=== PATIENT | female | born 1985 | race African-American/Black ===

== ENCOUNTER 2017-07-02 07:59 | Emergency (ER) | payer MEDICARE, MEDICAID | END 2017-07-02 08:46 | disposition home or self-care (01) | LOC: ERS 07:59 | DX: M25.561 Pain in right knee (principal); K02.9 Dental caries, unspecified; F31.9 Bipolar disorder, unspecified; F20.9 Schizophrenia, unspecified; F17.210 Nicotine dependence, cigarettes, uncomplicated; Z79.899 Other long term (current) drug therapy | CPT/HCPCS: 99283 ==

== ENCOUNTER 2017-07-14 20:38 | Emergency (ER) | payer MEDICARE, MEDICAID ==
[2017-07-14 21:07] LABS: #Basophils 0.1 thou/uL (0.0-0.2); #Eosinphils 0.1 thou/uL (0.0-0.7); #Lymphocytes 3.4 thou/uL (1.20-3.40); #Monocytes 0.7 thou/uL (0.11-0.59); #Neutrophils 4.5 thou/uL (1.40-6.50); %Basophils 1.1 % (0.0-1.0); %Eosinophils 1.3 % (0.0-10.0); %Lymphocytes 38.9 % (21.0-51.0); %Monocytes 7.6 % (0.0-10.0); Hematocrit 34.5 % (36.0-47.0); Mean Platelet Volume 6.9 fL (7.4-10.4); White Blood Cell (WBC) Count 8.8 thou/uL (4.8-10.8)
[2017-07-14 21:30] LABS: ALT (SGPT) 11 U/L (8-55); AST (SGOT) 9 U/L (5-34); Alkaline Phosphatase 51 U/L (40-150); Anion Gap 10 mmol/L (10-20); BUN (Urea Nitrogen) 16 mg/dL (7.0-18.7); Bilirubin, Total 0.3 mg/dL (0.2-1.2); CK (CPK) 109 U/L (29-168); Calc. Creatinine Clearance 0 mL/min (70-130); Calcium 8.9 mg/dL (7.8-10.44); Carbon Dioxide 25 mmol/L (22-29); Chloride 108 mmol/L (98-107); Estimated GFR-MDRD 74; Globulin 3.4 g/dL (2.4-3.5)
[2017-07-14 21:52] LABS: Troponin I Less than 0.010 ng/mL (< 0.028)
[2017-07-14 21:53] LABS: Acetaminophen Less than 6.0 mcg/mL (10.0-30.0); Salicylate Less than 8.0 mg/dL (15.0-30.0)
--- NOTE | 2017-07-14 22:19 | RAD ---
AP CHEST: History: Seizures. IMPRESSION: No acute cardiopulmonary abnormality. The examination does not appear appreciably changed when thelma red to 02-10-15. POS: [facility]
--- NOTE | 2017-07-14 22:29 | CT ---
CT BRAIN WITHOUT CONTRAST: History: History of seizures. Comparison: 02-10-15 FINDINGS: No acute infarct, hemorrhage, or hydrocephalus is present. The septum pellucidum and third ventricle are midline. Mastoid air cells and paranasal sinuses are clear. IMPRESSION: No acute intracranial abnormality. The examination [facility] POS: [facility]
[2017-07-15 00:27] LABS: Bilirubin Negative (Negative); Blood, Urine Large (Negative); Glucose, Urine (Dipstick) Negative (Negative); Ketone, Urine Negative (Negative); Nitrite Negative (Negative); Protein, Urine (Dipstick) Negative (Neg-Trace)
[2017-07-15 00:29] LABS: Bacteria/HPF None Seen HPF (None Seen); Hyaline Casts/LPF 0-3 HYALINE CAST LPF (0-3 Hyaline); RBC/HPF GREATER THAN 50-TNTC HPF (0-3); Squamous Epithelial 0-3 HPF (0-3); WBC/HPF 21-50 HPF (0-3)
[2017-07-15 00:37] LABS: Amphetamine Not Detected (NotDetected); Methadone Not Detected (NotDetected); Methamphetamine Not Detected (NotDetected)
== END 2017-07-15 03:13 | disposition home or self-care (01) ==
LOC: ERS 20:38
DX: R56.9 Unspecified convulsions (principal); N39.0 Urinary tract infection, site not specified; F31.9 Bipolar disorder, unspecified; F17.210 Nicotine dependence, cigarettes, uncomplicated; Z79.899 Other long term (current) drug therapy
CPT/HCPCS: 36415; 70450; 71010; 80053; 80306; 80307; 81003; 81015; 81025; 82550; 82553; 84484; 84703; 85025; 93005; 96360

== ENCOUNTER 2018-01-11 21:45 | Emergency (ER) | payer MEDICARE, MEDICAID | END 2018-01-11 23:39 | disposition home or self-care (01) | LOC: ERS 21:45 | DX: M10.9 Gout, unspecified (principal); F20.9 Schizophrenia, unspecified; F17.210 Nicotine dependence, cigarettes, uncomplicated; F31.9 Bipolar disorder, unspecified; R56.9 Unspecified convulsions; Z79.899 Other long term (current) drug therapy | CPT/HCPCS: 36415; 84550; 99283 ==

== ENCOUNTER 2018-03-06 08:45 | Inpatient (IN) | payer MEDICARE, MEDICAID ==
[2018-03-06 09:28] LABS: #Basophils 0.1 thou/uL (0.0-0.2); #Eosinphils 0.3 thou/uL (0.0-0.7); #Lymphocytes 2.8 thou/uL (1.20-3.40); #Monocytes 0.4 thou/uL (0.11-0.59); #Neutrophils 3.6 thou/uL (1.40-6.50); %Basophils 1.2 % (0.0-1.0); %Eosinophils 3.9 % (0.0-10.0); %Lymphocytes 39.6 % (21.0-51.0); %Monocytes 4.9 % (0.0-10.0); %Neutrophils 50.4 % (42.0-75.0); Hemoglobin 11.5 g/dL (12.0-16.0); Mean Corpuscular HGB CONC 32.5 g/dL (32.0-36.0); Mean Corpuscular Hemoglobin 30.4 pg (27.0-31.0); Mean Corpuscular Volume 93.6 fL (78.0-98.0); Mean Platelet Volume 6.9 fL (7.4-10.4); Platelet Count 257 thou/uL (130-400); RBC Distribution Width 13.4 % (11.5-14.5); Red Blood Cell (RBC) Count 3.77 mill/uL (4.20-5.40); White Blood Cell (WBC) Count 7.1 thou/uL (4.8-10.8)
[2018-03-06] MEDS ORDERED: predniSONE 20 MG TAB ONE (09:29)
[2018-03-06 09:40] LABS: BHCG - Serum Negative (NEGATIVE); Pregs Control Background? CLEAR/WHITE (CLR/WHITE); Pregs Control Bar Appear? YES (CONTROL BAR)
[2018-03-06 09:50] LABS: ALT (SGPT) 75 U/L (8-55); AST (SGOT) 37 U/L (5-34); Alkaline Phosphatase 71 U/L (40-150); Anion Gap 13 mmol/L (10-20); BUN (Urea Nitrogen) 12 mg/dL (7.0-18.7); Bilirubin, Total 0.9 mg/dL (0.2-1.2); Calc. Creatinine Clearance 0 mL/min (70-130); Calcium 9.4 mg/dL (7.8-10.44); Carbon Dioxide 21 mmol/L (22-29); Chloride 110 mmol/L (98-107); Estimated GFR-MDRD 90; Glucose 99 mg/dL (70-105); Sodium 140 mmol/L (136-145)
[2018-03-06 09:54] LABS: CKMB 0.8 ng/mL (0-6.6)
--- NOTE | 2018-03-06 10:07 | RAD ---
TWO VIEWS CHEST: Comparison: 07-14-17 History: Asthma flair up with dyspnea on exertion and cough for three days. FINDINGS: Two views of the chest shows an enlarged cardiomediastinal silhouette. Decreased interstitial marking s are present. There is no evidence of pleural effusion. There are opacities in the retrocardiac gaye on as seen on the lateral radiograph which may represent atelectasis or infiltrates in the lower lobe s. IMPRESSION: Bilateral lower lobe atelectasis versus infiltrate. POS: [facility]
[2018-03-06] MEDS ORDERED: ISOVUE-370 76%-LOCM 1 ML ONE (11:58)
--- NOTE | 2018-03-06 12:20 | CT ---
CT OF THE THORAX UTILIZING IV CONTRAST AND 3D REFORMATTED IMAGING: INDICATION: A 32-year-old female with wheezing and coughing. COMPARISON: Prior exam dated 07/30/11 and 08/03/10. FINDINGS: No definite central or segmental pulmonary embolus is evident. There is an enlarging soft tissue density within the superior and anterior mediastinum measuring 4 x 6.1 cm in its greatest transverse dimension. This was present on a comparison examination dated 07/16 01/23 but has intervally enlarged where it previously measured 2.8 x 3.6 cm. This measured approximat yolis 1 x 2.4 cm on the comparison of 08/03/10. There is now interval development of enlraged lymph no gee within the superior mediastinum, the largest measuring up to 8 mm. There is enlarged right supra hilar lymph node now measuring 1.3 cm. There is an enlarged subcarinal lymph node measuring 2.1 cm. There is an enlarged lymph node within the left hilar region measuring 1.7 cm. No definite pathologically enlarged lymph nodes seen within the upper abdomen. The spleen is normal in size measuring 8.6 cm. The gallbladder is surgically absent. No confluent airspace opacity or pl eural effusion is evident. There is some mild volume loss within the left lower lobe. IMPRESSION: 1. No central or segmental pulmonary embolus demonstrated. 2. Enlarging anterior mediastinal mass with mediastinal and hilar lymphadenopathy. Differential con siderations include entities such as Hodgkin's lymphoma or non-Hodgkin's lymphoma. A thymic lesion s uch as thymoma, thymic hyperplasia or thymic carcinoma cannot be entirely excluded. Entities such as a malignant germ cell tumor is felt to be less likely. A pulmonary consultation may be helpful for additional evaluation. CODE T POS: [facility]
[2018-03-06 14:04] LABS: Troponin I 0.108 ng/mL (< 0.028)
[2018-03-06] MEDS ORDERED: Guaifenesin DM 100-10/5 ML UDCUP PO PRN (14:07)
[2018-03-06] MEDS ORDERED: Acetaminophen 325 MG TAB PO PRN (14:07)
--- NOTE | 2018-03-06 15:02 | HP ---
REASON FOR ADMISSION: Asthma exacerbation, demand ischemia, CHF exacerbation, enlarging mediastinal mass, hemoptysis. HISTORY OF PRESENT ILLNESS: The patient gives history of having shortness of breath from last 3 days. She has also developed exertional chest tightness from day before. She has been using her albuterol inhaler multiple times. She has known history of asthma. This morning, the patient started to wheeze and also had increasing expectoration of sputum, which is yellowish. She also had one episode of small amount of blood in her sputum. All of this concerned as her symptoms were getting worse from last 3 days, the patient came to emergency room. Currently, she has no complaints of chest pain or palpitation. No prior history of cardiac issues or stress test done. No history of heart failure in the past. Has not had any measured temperature as such, but has felt feverish. PAST MEDICAL/SURGICAL HISTORY: History of asthma, seizure disorder from 13 years of age, but she has been seizure free from last 1 year now. Has history of schizoaffective disorder, depression, x2, and cholecystectomy. CURRENT MEDICATIONS: The patient takes albuterol inhaler q.6 hourly p.r.n.,; Keppra 1000 mg p.o. twice daily; Seroquel, unknown dose daily; Lexapro, unknown dose daily. She is also on another antipsychotic pill which she cannot remember at present. The patient goes to [facility] on [address] and will try to obtain the same. ALLERGIES: She is allergic to IBUPROFEN, which causes a rash. PERSONAL HISTORY: Smokes one pack a day, abuses marijuana, does not abuse alcohol or other drugs. She lives with her mom. FAMILY HISTORY: Mother has a history of multiple myeloma. Father of lung cancer at the age of 74 years. CODE STATUS: FULL. Power of civil attorney is her cousin Ms. Mary Anne mSall, the number to reach her is [phone]. REVIEW OF SYSTEMS: The following complete review of systems was negative, unless otherwise mentioned in the HPI or below: Constitutional: Weight loss or gain, ability to conduct usual activities. Skin: Rash, itching. Eyes: Double vision, pain. ENT/Mouth: Nose bleeding, neck stiffness, pain, tenderness. Cardiovascular: Palpitations, dyspnea on exertion, orthopnea. Respiratory: Shortness of breath, wheezing, cough, hemoptysis, fever or night sweats. Gastrointestinal: Poor appetite, abdominal pain, heartburn, nausea, vomiting, constipation, or diarrhea. Genitourinary: Urgency, frequency, dysuria, nocturia. Musculoskeletal: Pain, swelling. Neurologic/Psychiatric: Anxiety, depression. Allergy/Immunologic: Skin rash, bleeding tendency. PHYSICAL EXAMINATION: GENERAL: The patient is a 32-year-old female who is currently not in any acute distress. VITAL SIGNS: Blood pressure 138/98, pulse 100 per minute, respiratory rate 22 per minute, temperature 98.5 degrees Fahrenheit, saturating 99% on room air. NECK: Supple, no elevated JVD. HEENT: Eyes: Extraocular muscles intact. Pupils reacting to light. Oral cavity mucous membranes are moist. There is mild congestion in the posterior pharynx. No exudates seen. CARDIOVASCULAR: S1, S2 heard. Regular rhythm. RESPIRATORY: Air entry 1+ bilaterally. There are scattered wheezes plus bilaterally. ABDOMEN: Soft, bowel sounds heard. No tenderness, rigidity or guarding. EXTREMITIES: No peripheral edema or calf tenderness. VASCULAR SYSTEM: Peripheral pulses 1+ bilateral. No ischemic ulcerations or gangrene. CENTRAL NERVOUS SYSTEM: No gross focal deficits seen. The patient is alert, awake, oriented well. PSYCHIATRIC: The patient's mood is euthymic. No hallucinations or delusions. LABORATORY AND X-RAY FINDINGS: EKG done shows normal sinus rhythm at 89 beats per minute. There are signs of LVH seen. White count of 7, H&H 11 and 35, platelet count 257, MCV is 93 with 50% neutrophils. D-dimer was 3.74. Serum bicarbonate 21, BUN 12, creatinine 0.8, glucose 99, AST 37, ALT 75. Troponin I 0.13, CK-MB 0.8. BNP is 888, albumin is 4.0. Serum test is negative. CT angio chest done showed enlarging anterior mediastinal mass when compared to prior CAT scans done in 2009 and 2011, currently measures 4 x 6.1 cm. No PE was seen. CLINICAL IMPRESSION AND PLAN: The patient will be admitted to telemetry for acute asthma exacerbation, congestive heart failure exacerbation, demand ischemia, hemoptysis, enlarging mediastinal mass. The patient will be gently diuresed with Lasix 40 mg IV q.12 hourly. We will obtain echo with 2D Doppler for LV function. As patient is allergic to NSAIDs, she will be placed on Plavix. She will be empirically placed on ceftriaxone and Zithromax, along with steroids and DuoNebs. We will place her on a small dose of Coreg and lisinopril. We will try to obtain her home medications for her schizoaffective disorder from her [facility] and continue the same here. We will continue to closely monitor her on telemetry. CHRISTINE
[2018-03-06] MEDS: Nicotine 21 MG PATCH TD SCH (16:16)
[2018-03-06] MEDS: Azithromycin 500 MG in Sodium Chloride 0.9% 250 ML 250 ML IVPB SCH (16:16)
[2018-03-06 16:29] LABS: Troponin I 0.092 ng/mL (< 0.028)
[2018-03-06] MEDS: cefTRIAXone\\ROCEPHIN 1 GM in Sodium Chloride 0.9% 100 ML IVPB SCH (17:53)
[2018-03-06] MEDS: Nitroglycerin 2% Ointment 1 INCH/1 GM Packet TOP SCH (20:43)
[2018-03-06] MEDS: Docusate 100 MG CAP PO SCH (20:46)
[2018-03-06] MEDS: levETIRAcetam 500 MG TAB PO SCH (20:46)
[2018-03-06] MEDS: Famotidine 20 MG TAB PO SCH (20:46)
[2018-03-06] MEDS: Carvedilol 3.125 MG TAB PO SCH (20:46)
--- NOTE | 2018-03-07 03:56 | CON ---
DATE OF CONSULTATION: 03/06/2018 REQUESTING PHYSICIAN: Dr. Yosef Hinds, the Hospitalist Service. CHIEF COMPLAINT: Wheezing and shortness of breath. HISTORY OF PRESENT ILLNESS: The patient is a 32-year-old woman with a history of asthma and seizure disorder who smokes about a pack of cigarettes a day as well as marijuana, she had a flareup of her a sthma and that was sufficiently bad that she presented to the hospital. She was started on antibioti cs and steroids and her wheezing has cleared. A CT scan done to rule out pulmonary embolism, reporte d an enlarging anterior mediastinal mass and mediastinal adenopathy including hilar adenopathy, but t he comparison film was from several years ago. The patient does report night sweats, but denies any fevers, any unintended weight loss and malaise in the masses that she has noted popping up anywhere. PAST MEDICAL HISTORY: Significant for asthma and seizure disorder. She has a history of schizoaffec tive disorder and depression. She has undergone a cholecystectomy and two C-sections. HOME MEDICATIONS: She normally takes p.r.n. albuterol inhaler, Keppra 1000 mg twice a day, Seroquel and Lexapro both of which are unknown dose and another antipsychotic medication, the name of which gregorio jordan cannot remember. The nursing intake sheet lists her home medicines as Keppra 1000 mg b.i.d., p.r.n . albuterol, Lexapro 20 mg b.i.d., and Seroquel 100 mg at bedtime. ALLERGIES: She reports IBUPROFEN, causes rash. FAMILY HISTORY: Her father of lung cancer. Her mother has multiple myeloma. The patient says that she does not snore, sleep with a CPAP mask. PHYSICAL EXAMINATION: GENERAL: She is comfortable appearing. VITAL SIGNS: Heart rate is in the 90s, blood pressure 131/95, room air O2 sats are in the mid to hig h 90s, respirations are in the mid upper teens. Her height is 5 feet 10 inches, weight is 309 pounds . NECK: No cervical or supraclavicular lymphadenopathy. CHEST: Clear to auscultation. CARDIOVASCULAR: She has regular rate and rhythm without any obvious murmur or gallop. I am able to appreciate a split of S2, but it seems to be a variable split. ABDOMEN: Obese, soft, and nontender. Her CT scan is most notable for cardiomegaly or pulmonary isael ry RV outflow tract, essentially about the chest wall anteriorly. It is very difficult to appreciate any distinct tissue planes in the thymic fat pad to suggest a distinct mass. I am not able to view the films from 2011 and 2009 that were used as reference. She has an AP window lymph node that is le ss than a centimeter and she has got some peribronchial hilar lymph nodes that are a little bit over a centimeter in size. IMPRESSION AND RECOMMENDATIONS: I am not particularly impressed that this is a distinct mass. Certa inly, the patient's body habitus makes getting good detail on CAT scan challenge, but roughly doublin g in size of her mass over a period of 7-8 years, could just simply be accumulation of fat, [facility], not able to find any weights back in about 2-3 years when she was roughly the same leonila ght a little over 300 pounds, but certainly even if this is some neoplastic process, it is growing sl owly enough that I think that rather than diving into mediastinoscopy, percutaneous biopsy, or sterno álvaro that we can just simply follow this for a bit. I think a far more pressing issue is to sort out why she has such impressive cardiomegaly.
[2018-03-07 05:45] LABS: #Monocytes 0.1 thou/uL (0.11-0.59); #Neutrophils 5.7 thou/uL (1.40-6.50); %Eosinophils 0.1 % (0.0-10.0); %Lymphocytes 14.1 % (21.0-51.0); %Neutrophils 83.7 % (42.0-75.0); Hemoglobin 11.4 g/dL (12.0-16.0); Mean Corpuscular HGB CONC 32.8 g/dL (32.0-36.0); Mean Corpuscular Hemoglobin 30.2 pg (27.0-31.0); Mean Corpuscular Volume 92.3 fL (78.0-98.0); Mean Platelet Volume 7.2 fL (7.4-10.4); Platelet Count 257 thou/uL (130-400); RBC Distribution Width 13.2 % (11.5-14.5); Red Blood Cell (RBC) Count 3.77 mill/uL (4.20-5.40); White Blood Cell (WBC) Count 6.9 thou/uL (4.8-10.8)
[2018-03-07] MEDS: Furosemide 40 MG/4 ML VIAL SLOW IVP SCH ×2 (06:08→15:43)
[2018-03-07 06:11] LABS: Anion Gap 13 mmol/L (10-20); BUN (Urea Nitrogen) 11 mg/dL (7.0-18.7); Calc. Creatinine Clearance 235 mL/min (70-130); Calcium 9.3 mg/dL (7.8-10.44); Carbon Dioxide 21 mmol/L (22-29); Cardiac Risk 3.3 (Less than 4.5); Chloride 107 mmol/L (98-107); Cholesterol 156 mg/dl (< 200 Desired); Estimated GFR-MDRD Greater than 90; Glucose 126 mg/dL (70-105); HDL Cholesterol 47 mg/dL (>60 Neg Risk); LDL Cholesterol, Calculated 97 mg/dL; Potassium 4.5 mmol/L (3.5-5.1); Sodium 136 mmol/L (136-145); Triglycerides 62 mg/dL (Less than 150); Uric Acid 6.4 mg/dL (2.6-6.0)
[2018-03-07] MEDS: Nitroglycerin 2% Ointment 1 INCH/1 GM Packet TOP SCH ×3 (06:51→20:35)
[2018-03-07] MEDS: levETIRAcetam 500 MG TAB PO SCH ×2 (09:51→20:35)
[2018-03-07] MEDS: Famotidine 20 MG TAB PO SCH ×2 (09:52→20:35)
[2018-03-07] MEDS: Sodium Chloride 0.9% 10 ML ONE ×3 (09:54→17:07)
--- NOTE | 2018-03-07 10:52 | CON ---
DATE OF CONSULTATION: 03/06/2018 REASON FOR CONSULTATION: Elevated troponin and elevated BNP. HISTORY OF PRESENT ILLNESS: Ms. Sharma is a pleasant 32-year-old woman with past history of tobacco abuse, recently presented with increased shortness of breath. She states this has occurred last 2-3 weeks. She has had PND in addition have done, lower extremity edema. She also had increased weight. No chest pain or pressure noted. The only cardiovascular risk factor is tobacco abuse. PAST MEDICAL AND SURGICAL HISTORY: As above including seizure disorder, depression, x2, ch olecystectomy, schizoaffective disorder. MEDICATIONS: Lexapro, Keppra, Seroquel. ALLERGIES: IBUPROFEN. SOCIAL HISTORY: Positive tobacco, positive marijuana use. No alcohol use. FAMILY HISTORY: Negative for CAD. REVIEW OF SYSTEMS: Ten-point review of systems reviewed and as above, otherwise negative. PHYSICAL EXAMINATION: GENERAL: Patient is a pleasant female who is in no acute distress. The patient appears her stated a ge. She is morbidly obese, weighing 305 pounds. VITAL SIGNS: Blood pressure 121/83, pulse 88, temperature 98.8. NEUROLOGIC: The patient is alert and oriented times 3 with no focal neurologic deficits. HEENT: Sclerae without icterus. Mouth has moist mucous membranes with normal pallor. NECK: No JVD. Carotid upstroke brisk. No bruits bilaterally. LUNGS: Clear to auscultation with unlabored respirations. BACK: No scoliosis or kyphosis. CARDIAC: Regular rate and rhythm with normal S1 and S2. No S3 or S4 noted. No significant rubs, mu rmurs, thrills, or gallops noted throughout the precordium. PMI is not displaced. There is no lauren ternal heave. ABDOMEN: Soft, nontender, nondistended. No peritoneal signs present. No hepatosplenomegaly. No ab normal striae. EXTREMITIES: 2+ femoral and 2+ dorsalis pedis pulses. No cyanosis, clubbing, or edema. SKIN: No gross abnormalities. PERTINENT LABORATORY DATA: Hemoglobin 11.4, hematocrit 34.8, BUN 11, creatinine 0.7. BNP of 888, tr oponin 0.108. IMPRESSION: 1. Elevated BNP. 2. Increased shortness of breath. 3. Tobacco abuse. RECOMMENDATIONS: Ms. Sharma's symptoms certainly suggest cardiomyopathy given her symptoms in additi on to elevated BNP. Her troponin is mildly elevated, which is also concerned. At this point, I angela mmend aggressive medical therapy. We would recommend echo with Doppler. If her LVEF is diminished, we would therefore recommend coronary angiography. If it is felt to be within normal limits, we will then recommend a noninvasive stress study. She is currently on Coreg and we continue. We would als o recommend continuing IV Lasix. I do not feel this is consistent with infection.
[2018-03-07 10:55] VITALS: BMI 43.8
[2018-03-07] MEDS ORDERED: Sodium Chloride 0.9% 10 ML ONE (11:27)
[2018-03-07] MEDS: Clopidogrel Bisulfate 75 MG TAB PO SCH (11:31)
[2018-03-07] MEDS: Lisinopril 2.5 MG TAB PO SCH (11:32)
[2018-03-07] MEDS: Escitalopram Oxalate 10 mg Tablet PO SCH (11:32)
[2018-03-07] MEDS: Docusate 100 MG CAP PO SCH ×2 (11:33→20:39)
[2018-03-07] MEDS: Carvedilol 3.125 MG TAB PO SCH ×2 (11:33→20:35)
[2018-03-07] MEDS: Enoxaparin Sodium 40 MG/0.4 ML SYRINGE SC SCH (11:38)
--- NOTE | 2018-03-07 13:24 | PRG ---
DATE OF SERVICE: 03/07/2018 SUBJECTIVE: Ms. Sharma is doing well. She has less shortness of breath. She has diuresed. PHYSICAL EXAMINATION: VITAL SIGNS: Blood pressure 118/80, pulse 80, temperature 98.8. I's and O's -320. Weight unchanged . NEUROLOGIC: The patient is alert and oriented times 3 with no focal neurologic deficits. HEENT: Sclerae without icterus. Mouth has moist mucous membranes with normal pallor. NECK: No JVD. Carotid upstroke brisk. No bruits bilaterally. LUNGS: Clear to auscultation with unlabored respirations. BACK: No scoliosis or kyphosis. CARDIAC: Regular rate and rhythm with normal S1 and S2. No S3 or S4 noted. No significant rubs, murmurs, thrills, or gallops noted throughout the precordium. PMI is not displaced. There is no parasternal heave. ABDOMEN: Soft, nontender, nondistended. No peritoneal signs present. No hepatosplenomegaly. No abnormal striae. EXTREMITIES: 2+ femoral and 2+ dorsalis pedis pulses. No cyanosis, clubbing, or edema. SKIN: No gross abnormalities. PERTINENT LABS: Hemoglobin 11.4, creatinine 0.76. Echo Doppler shows LVEF 15%. Left ventricle appe ars dilated. Restrictive pattern present.` IMPRESSION: New onset cardiomyopathy of unknown etiology. RECOMMENDATIONS: Ms. Sharma does have a history of tobacco abuse. There is only risk factor. Given a mildly elevated troponin with cardiomyopathy and risk factor, we would recommend coronary angiogra phy post PCI. I discussed the procedure in full detail with Ms. Sharma. The risks include but are n ot limited. I discussed the procedure in full detail with the patient. The risks of the procedure w ere also discussed. The risks of the procedure include but are not limited to the following: , stroke, NM, need for emergency surgery, loss of limb, bleeding, and infection, as well as a reaction to the dye causing kidney failure and needing long-term dialysis. I also discussed the risks of PCI to include all of the above including coronary dissection and perforation in addition to acute stent thrombosis and restenosis. All questions about the procedure were answered. Given the above, the p atient agreed to proceed with coronary angiography and possible PCI. I also discussed drug-coated ve rsus nondrug-coated stent placement. Risks and benefits discussed. She states she can be compliant. There are no other contraindications, we will proceed with a drug-coated stent placement if needed. She has had a BTL in the past.
--- NOTE | 2018-03-07 13:54 | PDOC.PN ---
- Subjective Encounter Start Date: 03/07/18 Encounter Start Time: 11:35 -: old records requested/rev Pt seen and examined, chart reviewed in its entirety, this is my first visit with this patient Echo reviewed, EF 10-15%, diastolic dysfunction, cards to keep pt through weekend fro cath friday SOB much better, urinating well and responding tp diuresis All systems reviewed and neg for all except as stated above - Objective MAR Reviewed: Yes Vital Signs & Weight: Vital Signs (12 hours) Temp Pulse Pulse Pulse Resp BP BP 03/07/18 13:47 86 16 03/07/18 11:32 88 118/80 03/07/18 11:31 86 106 H 109/71 03/07/18 08:00 98.8 F 88 16 03/07/18 07:44 98.8 F 88 16 03/07/18 06:39 89 16 03/07/18 03:50 96.7 F L 89 22 H BP BP Pulse Ox Pulse Ox Pulse Ox 03/07/18 13:47 96 03/07/18 11:32 03/07/18 11:31 127/82 95 96 03/07/18 08:00 92 L 03/07/18 07:44 121/83 92 L 03/07/18 06:39 96 03/07/18 03:50 127/87 93 L Weight Admit Weight 309 lb Weight 305 lb 11.2 oz I&O: 03/06/18 03/07/18 03/08/18 06:59 06:59 06:59 Intake Total 780 Output Total 1100 Balance -320 Result Diagrams: 03/07/18 05:08 03/07/18 05:08 Radiology Reviewed by me: Yes EKG Reviewed by me: Yes Phys Exam - Physical Examination Constitutional: NAD HEENT: PERRLA, moist MMs, sclera anicteric, oral pharynx no lesions Neck: no nodes, no JVD, supple, full ROM Respiratory: no wheezing, no rales, no rhonchi, clear to auscultation bilateral Cardiovascular: RRR, no significant murmur, no rub Gastrointestinal: soft, non-tender, no distention, positive bowel sounds Musculoskeletal: pulses present, edema present Neurological: non-focal, normal sensation, moves all 4 limbs Lymphatic: no nodes Psychiatric: normal affect, A&O x 3 Skin: no rash, normal turgor, cap refill <2 seconds Dx/Plan (1) Acute systolic CHF (congestive heart failure), NYHA class 4 Code(s): I50.21 - ACUTE SYSTOLIC (CONGESTIVE) HEART FAILURE Status: Acute Comment: cath friday. diurese per cardiology (2) Asthma Code(s): J45.909 - UNSPECIFIED ASTHMA, UNCOMPLICATED Status: Acute Qualifiers: Asthma severity: unspecified severity Asthma persistence: intermittent Asthma complication type: unspecified Qualified Code(s): J45.20 - Mild intermittent asthma, uncomplicated (3) Bipolar 1 disorder Code(s): F31.9 - BIPOLAR DISORDER, UNSPECIFIED Status: Chronic (4) Grand mal seizure disorder Code(s): G40.409 - OTH GENERALIZED EPILEPSY, NOT INTRACTABLE, W/O STAT EPI Status: Chronic (5) Hx of suicide attempt Code(s): Z91.5 - PERSONAL HISTORY OF SELF-HARM Status: Chronic (6) Polysubstance (excluding opioids) dependence Code(s): F19.20 - OTHER PSYCHOACTIVE SUBSTANCE DEPENDENCE, UNCOMPLICATED Status: Chronic (7) Schizophrenia Code(s): F20.9 - SCHIZOPHRENIA, UNSPECIFIED Status: Chronic Qualifiers: Schizophrenia type: unspecified Qualified Code(s): F20.9 - Schizophrenia, unspecified - Plan cont current plan of care, out of bed/ambulate * .
[2018-03-07] MEDS: Nicotine 21 MG PATCH TD SCH (15:46)
[2018-03-07] MEDS: Azithromycin 500 MG in Sodium Chloride 0.9% 250 ML 250 ML IVPB SCH (15:46)
[2018-03-07] MEDS ORDERED: Nitroglycerin 0.4 MG TAB (25 Tab Bottle) ONE (17:03)
[2018-03-07] MEDS: Nitroglycerin 0.4 MG TAB (25 Tab Bottle) SL PRN ×2 (17:05→17:08)
[2018-03-07] MEDS: cefTRIAXone\\ROCEPHIN 1 GM in Sodium Chloride 0.9% 100 ML IVPB SCH (17:06)
[2018-03-07 18:09] LABS: CKMB 0.6 ng/mL (0-6.6)
[2018-03-07 20:23] LABS: CKMB 0.7 ng/mL (0-6.6); Troponin I 0.034 ng/mL (< 0.028)
[2018-03-08] MEDS: Nitroglycerin 2% Ointment 1 INCH/1 GM Packet TOP SCH ×3 (05:29→22:20)
[2018-03-08] MEDS: Furosemide 40 MG/4 ML VIAL SLOW IVP SCH ×2 (05:29→14:48)
[2018-03-08 05:38] LABS: #Lymphocytes 1.4 thou/uL (1.20-3.40); #Monocytes 0.4 thou/uL (0.11-0.59); #Neutrophils 10.7 thou/uL (1.40-6.50); %Eosinophils 0.1 % (0.0-10.0); %Lymphocytes 11.3 % (21.0-51.0); %Monocytes 3.4 % (0.0-10.0); %Neutrophils 85.2 % (42.0-75.0); Hemoglobin 12.7 g/dL (12.0-16.0); Mean Corpuscular HGB CONC 31.6 g/dL (32.0-36.0); Mean Corpuscular Hemoglobin 29.4 pg (27.0-31.0); Platelet Count 320 thou/uL (130-400); RBC Distribution Width 13.6 % (11.5-14.5); Red Blood Cell (RBC) Count 4.32 mill/uL (4.20-5.40); White Blood Cell (WBC) Count 12.5 thou/uL (4.8-10.8)
[2018-03-08 06:01] LABS: Anion Gap 14 mmol/L (10-20); BUN (Urea Nitrogen) 18 mg/dL (7.0-18.7); Calc. Creatinine Clearance 175 mL/min (70-130); Calcium 10.2 mg/dL (7.8-10.44); Carbon Dioxide 26 mmol/L (22-29); Chloride 103 mmol/L (98-107); Estimated GFR-MDRD 79; Glucose 120 mg/dL (70-105); Potassium 4.2 mmol/L (3.5-5.1); Sodium 139 mmol/L (136-145)
[2018-03-08] MEDS: levETIRAcetam 500 MG TAB PO SCH ×2 (09:02→22:19)
[2018-03-08] MEDS: Lisinopril 2.5 MG TAB PO SCH (09:02)
[2018-03-08] MEDS: Clopidogrel Bisulfate 75 MG TAB PO SCH (09:03)
[2018-03-08] MEDS: Carvedilol 3.125 MG TAB PO SCH ×2 (09:03→22:19)
[2018-03-08] MEDS: Famotidine 20 MG TAB PO SCH ×2 (09:03→22:20)
[2018-03-08] MEDS: Docusate 100 MG CAP PO SCH ×2 (09:03→22:29)
[2018-03-08] MEDS: Enoxaparin Sodium 40 MG/0.4 ML SYRINGE SC SCH (09:04)
[2018-03-08] MEDS: Sodium Chloride 0.9% 10 ML ONE (09:04)
[2018-03-08] MEDS: Escitalopram Oxalate 10 mg Tablet PO SCH (09:09)
--- NOTE | 2018-03-08 10:06 | PDOC.CTH ---
Cardiology Progress Note - Subjective No complaints today. Feeling good. Denies any CP and SOB improved. - Objective Vital Signs Temp Pulse Resp BP BP Pulse Ox 03/08/18 09:02 88 121/77 03/08/18 06:43 85 18 98 03/08/18 03:52 98.2 F 82 16 112/55 L 92 L 03/08/18 00:51 86 16 97 Admit Weight 309 lb Weight 297 lb 03/07/18 03/08/18 03/09/18 06:59 06:59 06:59 Intake Total 780 1270 Output Total 1100 4050 Balance -320 -2780 - Physical Examination General/Neuro: alert & oriented x3 Neck: no JVD present Lungs: CTA Heart: RRR Abdomen: NT/ND, soft Extremities: other: (no edema) - Labs Result Diagrams: 03/08/18 04:46 03/08/18 04:46 Troponin/CKMB CK-MB (CK-2) 0.7 ng/mL (0-6.6) 03/07/18 19:49 Troponin I 0.034 ng/mL (< 0.028) H 03/07/18 19:49 - Assessment/Plan 1. New [employer] with EF 10-15%. 2. BPD 3. Schizophrenia 4. Morbid Obesity 5. History of polysubstance abuse 6. Seizure D/O Plan for [facility] tomorrow to r/o ischmia. Discussed with patient and she has no questions. Otherwise continue diuresis. Good response to IV lasix. Discussed need for LifeVest at time of discharge. Will place order.
[2018-03-08] MEDS ORDERED: Sodium Chloride 0.9% 10 ML ONE ×3 (10:44→17:40)
[2018-03-08] MEDS: Nicotine 21 MG PATCH TD SCH (14:49)
[2018-03-08] MEDS: Azithromycin 500 MG in Sodium Chloride 0.9% 250 ML 250 ML IVPB SCH (14:49)
[2018-03-08] MEDS ORDERED: Communication Order-Pharmacy FS SCH (15:00)
[2018-03-08] MEDS ORDERED: Sodium Chloride 0.9% 1,000 ML IV SCH (15:00)
--- NOTE | 2018-03-08 15:25 | PDOC.PN ---
- Subjective Encounter Start Date: 03/08/18 Encounter Start Time: 12:45 follow up for CP, acute on chronic systolic and diastolic combined CHF no CP overnight, last episode yesterday afternoon. no sig change in the EKG, biomarkers still trending down. able to ambulate in the [place], less SOb and MELENDEZ has a spell or presyncope this AM, corresponded to a 7-8 beat run on VTach. Life vest already ordered No F/C, no n/V/d/c. Heart cath tomorrow all systems reviewed and neg x as above - Objective MAR Reviewed: Yes Vital Signs & Weight: Vital Signs (12 hours) Temp Pulse Pulse Pulse Resp BP BP 03/08/18 14:05 79 18 03/08/18 11:30 88 18 03/08/18 09:48 105 H 92 119/75 03/08/18 09:02 88 121/77 03/08/18 08:00 96.1 F L 88 18 03/08/18 06:43 85 18 03/08/18 03:52 98.2 F 82 16 BP BP BP Pulse Ox Pulse Ox Pulse Ox 03/08/18 14:05 98 03/08/18 11:30 118/74 97 03/08/18 09:48 119/71 95 95 03/08/18 09:02 03/08/18 08:00 121/77 96 03/08/18 06:43 98 03/08/18 03:52 112/55 L 92 L Weight Admit Weight 309 lb Weight 297 lb I&O: 03/07/18 03/08/18 03/09/18 06:59 06:59 06:59 Intake Total 780 1270 Output Total 1100 4050 Balance -320 -2780 Result Diagrams: 03/08/18 04:46 03/08/18 04:46 Radiology Reviewed by me: Yes EKG Reviewed by me: Yes Phys Exam - Physical Examination Constitutional: NAD HEENT: PERRLA, moist MMs, sclera anicteric, oral pharynx no lesions Neck: no nodes, no JVD, supple, full ROM Respiratory: no wheezing, no rales, no rhonchi, clear to auscultation bilateral Cardiovascular: RRR, no significant murmur, no rub Gastrointestinal: soft, non-tender, no distention, positive bowel sounds Musculoskeletal: pulses present, edema present Neurological: non-focal, normal sensation, moves all 4 limbs Lymphatic: no nodes Psychiatric: normal affect, A&O x 3 Skin: no rash, normal turgor, cap refill <2 seconds Dx/Plan (1) Acute systolic CHF (congestive heart failure), NYHA class 4 Code(s): I50.21 - ACUTE SYSTOLIC (CONGESTIVE) HEART FAILURE Status: Acute Comment: cath friday. diurese per cardiology (2) Asthma Code(s): J45.909 - UNSPECIFIED ASTHMA, UNCOMPLICATED Status: Acute Qualifiers: Asthma severity: unspecified severity Asthma persistence: intermittent Asthma complication type: unspecified Qualified Code(s): J45.20 - Mild intermittent asthma, uncomplicated (3) Bipolar 1 disorder Code(s): F31.9 - BIPOLAR DISORDER, UNSPECIFIED Status: Chronic (4) Grand mal seizure disorder Code(s): G40.409 - OTH GENERALIZED EPILEPSY, NOT INTRACTABLE, W/O STAT EPI Status: Chronic (5) Hx of suicide attempt Code(s): Z91.5 - PERSONAL HISTORY OF SELF-HARM Status: Chronic (6) Polysubstance (excluding opioids) dependence Code(s): F19.20 - OTHER PSYCHOACTIVE SUBSTANCE DEPENDENCE, UNCOMPLICATED Status: Chronic (7) Schizophrenia Code(s): F20.9 - SCHIZOPHRENIA, UNSPECIFIED Status: Chronic Qualifiers: Schizophrenia type: unspecified Qualified Code(s): F20.9 - Schizophrenia, unspecified - Plan * .
[2018-03-08] MEDS: cefTRIAXone\\ROCEPHIN 1 GM in Sodium Chloride 0.9% 100 ML IVPB SCH (16:50)
[2018-03-09] MEDS: Nitroglycerin 2% Ointment 1 INCH/1 GM Packet TOP SCH ×3 (05:45→22:41)
[2018-03-09] MEDS: Famotidine 20 MG TAB PO SCH ×2 (05:47→20:11)
[2018-03-09] MEDS: Lisinopril 2.5 MG TAB PO SCH (05:48)
[2018-03-09] MEDS: levETIRAcetam 500 MG TAB PO SCH ×2 (05:48→20:11)
[2018-03-09] MEDS: Carvedilol 3.125 MG TAB PO SCH ×2 (05:52→20:11)
[2018-03-09] MEDS: Docusate 100 MG CAP PO SCH ×2 (05:52→20:12)
[2018-03-09] MEDS: Escitalopram Oxalate 10 mg Tablet PO SCH (05:52)
[2018-03-09] MEDS ORDERED: Sodium Chloride 0.9% 1,000 ML IV SCH ×2 (06:00→09:30)
[2018-03-09] MEDS ORDERED: Lidocaine 1% (PF) 30 ML VIAL ONE (08:11)
[2018-03-09] MEDS ORDERED: Verapamil 5 MG/2 ML VIAL ONE (08:43)
[2018-03-09] MEDS ORDERED: Nitroglycerin 100MG/250ML BOT 250 ML ONE (08:43)
[2018-03-09] MEDS ORDERED: Heparin 10,000 UNITS/1 ML VIAL ONE (08:43)
[2018-03-09] MEDS ORDERED: traMADol HCl 50 MG TAB PO PRN (09:20)
[2018-03-09] MEDS ORDERED: Acetaminophen/Codeine 30-300mg Tablet PO PRN ×2 (09:20)
[2018-03-09] MEDS ORDERED: Nitroglycerin 0.4 MG TAB (25 Tab Bottle) SL PRN (09:20)
[2018-03-09] MEDS ORDERED: Sodium Chloride 0.9% 200 ML IV PRN (09:30)
--- NOTE | 2018-03-09 09:56 | PDOC.PN ---
- Subjective Encounter Start Date: 03/09/18 Encounter Start Time: 09:55 DOING WELL POST-CATH. NO COMPLAINTS. - Objective MAR Reviewed: Yes Vital Signs & Weight: Vital Signs (12 hours) Temp Pulse Resp BP BP BP Pulse Ox 03/09/18 08:18 97.9 F 80 16 115/65 95 03/09/18 07:17 80 20 98 03/09/18 05:48 77 114/65 03/09/18 03:56 97.5 F L 77 16 114/65 96 03/09/18 00:25 75 20 95 03/09/18 00:03 70 114/70 Weight Admit Weight 309 lb Weight 292 lb 8 oz I&O: 03/08/18 03/09/18 03/10/18 06:59 06:59 06:59 Intake Total 1270 3310 Output Total 4050 6300 Balance -2780 -2990 Result Diagrams: 03/08/18 04:46 03/08/18 04:46 Phys Exam - Physical Examination Constitutional: NAD HEENT: PERRLA, oral pharynx no lesions Neck: no JVD, supple Respiratory: no wheezing, no rales, no rhonchi, clear to auscultation bilateral Cardiovascular: RRR, no significant murmur Gastrointestinal: soft, non-tender, no distention, positive bowel sounds Musculoskeletal: no edema Neurological: non-focal Psychiatric: normal affect, A&O x 3 Skin: normal turgor Dx/Plan (1) Cardiomyopathy Code(s): I42.9 - CARDIOMYOPATHY, UNSPECIFIED Status: Acute Plan: EF AT 10-15% ON ECHO. HAD CATH THIS AM. INITIAL REPORT LOOKS LIKE NO INTERVENTION WAS UNDERTAKEN. MEDICAL MANAGEMENT WITH BETA IRENE, AFTERLOAD REDUCTION AND DIURESIS. CONSIDERATION OF LIFEVEST. (2) Acute systolic CHF (congestive heart failure), NYHA class 4 Code(s): I50.21 - ACUTE SYSTOLIC (CONGESTIVE) HEART FAILURE Status: Acute (3) Mediastinal mass Status: Acute Plan: PULMONOLOGY FOLLOWING. NOT CONVINCED THIS REPRESENTS A NEOPLASM. CONSIDER SARCOIDOSIS GIVEN THE PULMONARY FINDINGS AND CARDIOMYOPATHY. MAY NEED BIOPSY TO ASSESS. (4) Asthma Code(s): J45.909 - UNSPECIFIED ASTHMA, UNCOMPLICATED Status: Acute Qualifiers: Asthma severity: unspecified severity Asthma persistence: intermittent Asthma complication type: unspecified Qualified Code(s): J45.20 - Mild intermittent asthma, uncomplicated Plan: NO EVIDENCE OF EXACERBATION. (5) Bipolar 1 disorder Code(s): F31.9 - BIPOLAR DISORDER, UNSPECIFIED Status: Chronic (6) Grand mal seizure disorder Code(s): G40.409 - OTH GENERALIZED EPILEPSY, NOT INTRACTABLE, W/O STAT EPI Status: Chronic - Plan * ABOVE. * CONSTELLATION OF SOFT TISSUE FINDINGS AND RANCHO IN THE MEDIASTINUM AND THE NON- ISCHEMIC CARDIOMYOPATHY MAY NEED EVALUATION FOR SARCOIDOSIS. WILL DISCUSS WITH PULMONOLOGY.
[2018-03-09] MEDS: Clopidogrel Bisulfate 75 MG TAB PO SCH (10:08)
[2018-03-09] MEDS: Furosemide 40 MG/4 ML VIAL SLOW IVP SCH ×2 (10:14→14:12)
[2018-03-09] MEDS ORDERED: Iopamidol 370 76% 100 ML VIAL ONE (13:31)
[2018-03-09] MEDS: Azithromycin 500 MG in Sodium Chloride 0.9% 250 ML 250 ML IVPB SCH (14:13)
[2018-03-09] MEDS: Nicotine 21 MG PATCH TD SCH (14:18)
[2018-03-09] MEDS: Sodium Chloride 0.9% 10 ML ONE (14:19)
[2018-03-09] MEDS: cefTRIAXone\\ROCEPHIN 1 GM in Sodium Chloride 0.9% 100 ML IVPB SCH (17:12)
[2018-03-10] MEDS: Nitroglycerin 2% Ointment 1 INCH/1 GM Packet TOP SCH (06:44)
[2018-03-10] MEDS: Furosemide 40 MG/4 ML VIAL SLOW IVP SCH (06:44)
--- NOTE | 2018-03-10 08:54 | PDOC.PN ---
- Subjective Encounter Start Date: 03/10/18 Encounter Start Time: 08:52 Feels great. No complaints. Does feel a little better wearing oxygen. Has been up and around today. - Objective MAR Reviewed: Yes Vital Signs & Weight: Vital Signs (12 hours) Temp Pulse Resp BP Pulse Ox 03/10/18 06:26 70 14 99 03/10/18 03:51 97.7 F 84 18 114/62 96 03/10/18 00:25 74 16 94 L Weight Admit Weight 309 lb Weight 290 lb I&O: 03/09/18 03/10/18 03/11/18 06:59 06:59 06:59 Intake Total 3310 1430 Output Total 6300 2400 Balance -2990 -970 Result Diagrams: 03/08/18 04:46 03/08/18 04:46 Phys Exam - Physical Examination Constitutional: NAD Neck: no JVD, supple Respiratory: no wheezing, no rales, no rhonchi Cardiovascular: RRR, no significant murmur, no rub Gastrointestinal: soft, non-tender, no distention, positive bowel sounds Musculoskeletal: no edema Psychiatric: normal affect, A&O x 3 Skin: normal turgor Dx/Plan (1) Cardiomyopathy Code(s): I42.9 - CARDIOMYOPATHY, UNSPECIFIED Status: Acute Plan: HAD CATH YESTERDAY. APPEARS TO BE A NON-ISCHEMIC CARDIOMYOPATHY. AWAIT CARDIOLOGY FOLLOWUP. MAY NEED LIFE VEST AND MEDICAL MANAGEMENT. (2) Acute systolic CHF (congestive heart failure), NYHA class 4 Code(s): I50.21 - ACUTE SYSTOLIC (CONGESTIVE) HEART FAILURE Status: Acute Plan: BETA BLOCKADE, AFTERLOAD REDUCTION AND DIURESIS. (3) Mediastinal mass Status: Acute Plan: SEEMS TO BE MOST CONSISTENT WITH RANCHO. CONSIDER SARCOID GIVEN THIS FINDING AND THE CARDIOMYOPATHY. PULMONOLOGY CONSULT PENDING. ON STEROIDS. (4) Asthma Code(s): J45.909 - UNSPECIFIED ASTHMA, UNCOMPLICATED Status: Acute Qualifiers: Asthma severity: unspecified severity Asthma persistence: intermittent Asthma complication type: unspecified Qualified Code(s): J45.20 - Mild intermittent asthma, uncomplicated Plan: WELL CONTROLLED. NO EVIDENCE OF WHEEZING OR DECOMPENSATION. ON STEROIDS WHICH CAN BE TAPERED WITH NO WHEEZING. (5) Bipolar 1 disorder Code(s): F31.9 - BIPOLAR DISORDER, UNSPECIFIED Status: Chronic (6) Grand mal seizure disorder Code(s): G40.409 - OTH GENERALIZED EPILEPSY, NOT INTRACTABLE, W/O STAT EPI Status: Chronic - Plan * ABOVE.
[2018-03-10] MEDS ORDERED: Sodium Chloride 0.9% 10 ML ONE (08:59)
[2018-03-10] MEDS ORDERED: predniSONE 20 MG TAB PO SCH (09:00)
[2018-03-10] MEDS: Escitalopram Oxalate 10 mg Tablet PO SCH (09:09)
[2018-03-10] MEDS: Carvedilol 3.125 MG TAB PO SCH (09:09)
[2018-03-10] MEDS: Clopidogrel Bisulfate 75 MG TAB PO SCH (09:09)
[2018-03-10] MEDS: Lisinopril 2.5 MG TAB PO SCH (09:10)
[2018-03-10] MEDS: Famotidine 20 MG TAB PO SCH (09:10)
[2018-03-10] MEDS: levETIRAcetam 500 MG TAB PO SCH (09:10)
[2018-03-10] MEDS: Docusate 100 MG CAP PO SCH (09:11)
[2018-03-10 11:35] VITALS: TEMP 98.7
[2018-03-10 13:36] VITALS: BP 112/74
--- NOTE | 2018-03-10 14:12 | PDOC.CTH ---
Cardiology Progress Note - Subjective Patient without complaints. Seen by pulmonology and having outpatient work-up for sleep apnea. No biopsy recommended now after recent CHF diagnosis. - Objective Vital Signs Temp Pulse Pulse Pulse Resp BP BP 03/10/18 12:08 82 79 112/74 03/10/18 11:32 98.7 F 83 18 03/10/18 11:30 77 14 03/10/18 09:10 86 106/63 03/10/18 08:50 99.0 F 86 16 03/10/18 06:26 70 14 03/10/18 03:51 97.7 F 84 18 BP BP BP Pulse Ox Pulse Ox Pulse Ox 03/10/18 12:08 109/66 98 96 03/10/18 11:32 112/75 98 03/10/18 11:30 95 03/10/18 09:10 03/10/18 08:50 106/63 98 03/10/18 06:26 99 03/10/18 03:51 114/62 96 Admit Weight 309 lb Weight 290 lb 03/09/18 03/10/18 03/11/18 06:59 06:59 06:59 Intake Total 3310 1430 Output Total 6300 2400 Balance -2990 -970 - Physical Examination General/Neuro: alert & oriented x3, NAD Neck: no JVD present Lungs: CTA Heart: RRR Abdomen: NT/ND Extremities: other: (no edema) - Telemetry Telemetry Rhythm: SR - Labs Result Diagrams: 03/08/18 04:46 03/08/18 04:46 Troponin/CKMB CK-MB (CK-2) 0.7 ng/mL (0-6.6) 03/07/18 19:49 Troponin I 0.034 ng/mL (< 0.028) H 03/07/18 19:49 - Assessment/Plan 1. New dilated NICMO with EF 10-15%. 2. BPD 3. Schizophrenia 4. Morbid Obesity 5. History of polysubstance abuse 6. Seizure D/O 7. NSVT Overall doing well. Continue bblocker for VT. LifeVest in place. Check BMP today. If renal function normal, ok for discharge and can f/u as outpatient. Lasix changed to po.
--- NOTE | 2018-03-10 14:40 | CON ---
DATE OF CONSULTATION: 03/10/2018 HISTORY OF PRESENT ILLNESS: Mike Sharma is a very pleasant 32-year-old female, who was admitted . A CT pulmonary angiogram was done in the emergency room for complaints of shortness of breath. She h as an anterior mediastinal mass. She has a small right infrahilar and left periaortic lymph node. I found no CT from 2010 that measured this and this was approximately half as big. Reviewed the CT with the radiologist and it has the density of solid tissue, not fat. PAST MEDICAL HISTORY: Remarkable for seizure disorder, depression, 2 C-sections, cholecystectomy, an d schizoaffective disorder. MEDICATIONS: She is on Lexapro, Keppra, and Seroquel. SOCIAL HISTORY: She is a smoker and marijuana user. She says she will quit smoking either substance , because she wants to be around for her kids. ALLERGIES: She reports allergies to IBUPROFEN. FAMILY HISTORY: Negative for lung disease in early age. REVIEW OF SYSTEMS: Ten-point review of systems is, otherwise, negative. She says she feels fine now . She does admit to snoring. PHYSICAL EXAMINATION: VITAL SIGNS: She is afebrile, heart rate is 83, respiratory rate is 18, oximetry is 98 on room air, blood pressure 112/74. HEENT: Pupils are equal. NECK: Supple, no lymphadenopathy. LUNGS: Clear. HEART: Regular rhythm. S1 and S2 are normal. ABDOMEN: Soft and nontender. EXTREMITIES: Without clubbing, cyanosis, or edema. She is 5 feet 10 inches, 290 pounds. IMPRESSION: Anterior mediastinal mass. Her echocardiogram shows an ejection fraction of 10%-15%. She apparently had no coronary disease. She needs an outpatient sleep study to rule out severe obstructive sleep apnea. She is not a enrique te for surgical workup of her anterior mediastinum. 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 I suppose it could also be retrosternal thyroid tissue, but it does not have a hetero geneous appearance of that one sees with Graves' disease and she is certainly not hyperthyroid. I doubt this is a lymphoma or teratoma. Hopefully, her cardiomyopathy will improve over the next 6 months. She can be considered a candidate for surgery. At this point in time, we would not proceed with a surgical approach to this. I would recommend repeating a CT without contrast in 6 months to look at her anterior mediastinum again. If this is enlarged at all, then we will not have any choice, but to have Cardiothoracic Surgery consid er her for surgical resection of this. I will be happy to see her as an outpatient. I will also set up a sleep study and follow this with a CT scan.
[2018-03-10 15:13] LABS: Anion Gap 14 mmol/L (10-20); BUN (Urea Nitrogen) 22 mg/dL (7.0-18.7); Calc. Creatinine Clearance 192 mL/min (70-130); Calcium 9.6 mg/dL (7.8-10.44); Carbon Dioxide 26 mmol/L (22-29); Chloride 101 mmol/L (98-107); Estimated GFR-MDRD Greater than 90; Glucose 137 mg/dL (70-105); Potassium 3.7 mmol/L (3.5-5.1); Sodium 137 mmol/L (136-145)
[2018-03-10] MEDS: Azithromycin 500 MG in Sodium Chloride 0.9% 250 ML 250 ML IVPB SCH (15:33)
[2018-03-10] MEDS: Nicotine 21 MG PATCH TD SCH (15:38)
[2018-03-10] MEDS: cefTRIAXone\\ROCEPHIN 1 GM in Sodium Chloride 0.9% 100 ML IVPB SCH (15:40)
[2018-03-11] MEDS ORDERED: Furosemide 40 MG TAB PO SCH (07:30)
--- NOTE | 2018-03-11 14:53 | DIS ---
DATE OF ADMISSION: 03/06/2018 DATE OF DISCHARGE: 03/10/2018 DISCHARGE DIAGNOSES: 1. Cardiomyopathy, nonischemic. 2. Acute systolic congestive heart failure. 3. Mediastinal mass. 4. Asthma. 5. History of bipolar disorder. 6. History of grand-mal seizure disorder. HISTORY OF PRESENT ILLNESS: This patient is a 32-year-old female with a history of asthma and bipola r disorder, who presented to the emergency department with complaining of some shortness of breath, e xertional chest tightness, and some sputum production. Her physical exam was notable for pulse of 10 0, slightly elevated blood pressure, respiratory rate of 22. She had scattered wheezes bilaterally. Her EKG showed some evidence of some left ventricular hypertrophy. Labs were largely unremarkable. D-dimer was 3.74. CT angio of the chest showed some enlarging anterior mediastinal lymphadenopathy when compared to previous exams done in 2009 and 2010, measuring area of 4 x 6.1 cm, but no PE was se en. Troponin was 0.13. BNP was 888.3. The chest x-ray showed bilateral lower lobe atelectasis vers us infiltrate. HOSPITAL COURSE: The patient was admitted to the hospital with what appeared to be some congestive h eart failure with some demand ischemia. The patient was admitted to the hospital. She was felt to h ave some volume overload and she had a dose of Lasix for diuresis. She had a consult, called for Car diology as well as CV Surgery. She underwent an echocardiogram, which revealed an ejection fraction of 10-15% with slightly enlarged left ventricle with evidence of some diastolic dysfunction, moderate mitral regurgitation, [id number] tricuspid regurgitation. Cardiology felt the patient has a s ignificant cardiomyopathy without clear etiology, so she subsequently underwent a heart catheterizati on revealing no evidence of occlusive disease with diagnosis of a nonischemic cardiomyopathy. CV Abhishek vashti felt that the patient's mediastinal mass was not customer solutions representative even a true mass lesion and it m ight have been more accumulated fat in the mediastinum. However, given the cardiomyopathy of unknown etiology, the patient's age and demographics, and the mediastinal lymphadenopathy which progressed o yahir some years, and was concerned for the possibility of sarcoidosis. Pulmonology was consulted and felt that the patient was not a good candidate for biopsy given her decompensated heart failure issue s; however, she might be at some point in the near future to help establish the diagnosis. Once the patient was stabilized on beta-blockers, SULEMA inhibitor, diuretics, and she was fitted with a LifeVest . She was felt to be stable for discharge to home as she was asymptomatic and her vital signs have r emained stable. DISCHARGE EXAMINATION: VITAL SIGNS: Patient had temperature of 98.7, pulse 83, respirations 18. She was 98% on room air, B P was 112/72. GENERAL APPEARANCE: The patient was awake and alert. She is very pleasant and appropriate. She is morbidly obese. HEART: Regular without murmurs. LUNGS: Clear to auscultation bilaterally. ABDOMEN: Soft, nontender, nondistended. EXTREMITIES: Warm and dry without edema. DISCHARGE MEDICATIONS: Coreg 3.125 mg 1 p.o. b.i.d., Lasix 40 mg p.o. daily, lisinopril 2.5 mg p.o. daily, Nicoderm patch 21 mg, nitroglycerin sublingual every 5 minutes p.r.n., albuterol 2 puffs q.4 h ours as needed, Tylenol 650 mg q.4. hours as needed, quetiapine 100 mg p.o. at bedtime, Keppra 1000 m g p.o. b.i.d. and Lexapro 20 mg p.o. daily. DISCHARGE INSTRUCTIONS: Her activity level is as tolerated. She is on a heart healthy, low sodium d iet. She is to follow up with her PCP as well as Cardiology and Pulmonology. She is to return to [facility] emergency department should she have any problems prior to the time of her discharge. Of note, Pul monology recommended the patient has follow up for outpatient evaluation for potential obstructive sl eep apnea as well.
== END 2018-03-10 17:18 | disposition home or self-care (01) | DRG 287 ==
LOC: ERS 08:45 → 2NO 14:43
PROVIDERS: ADMIT Internal Medicine; ATTEND Internal Medicine
PROC: 4A023N7 Measurement of Cardiac Sampling and Pressure, Left Heart, Percutaneous Approach (ICD-10-PCS; principal; 2018-03-09)
PROC: B215YZZ Fluoroscopy of Left Heart using Other Contrast (ICD-10-PCS; 2018-03-09)
PROC: B211YZZ Fluoroscopy of Multiple Coronary Arteries using Other Contrast (ICD-10-PCS; 2018-03-09)
DX: I50.23 Acute on chronic systolic (congestive) heart failure (principal); I42.0 Dilated cardiomyopathy; I24.8 Other forms of acute ischemic heart disease; J45.21 Mild intermittent asthma with (acute) exacerbation; Z68.41 Body mass index [BMI] 40.0-44.9, adult; I47.2 Ventricular tachycardia; R04.2 Hemoptysis; F31.9 Bipolar disorder, unspecified; R59.0 Localized enlarged lymph nodes; G40.409 Other generalized epilepsy and epileptic syndromes, not intractable, without status epilepticus; R61 Generalized hyperhidrosis; F25.9 Schizoaffective disorder, unspecified; F60.3 Borderline personality disorder; E66.01 Morbid (severe) obesity due to excess calories; F19.10 Other psychoactive substance abuse, uncomplicated; F17.210 Nicotine dependence, cigarettes, uncomplicated; Z87.448 Personal history of other diseases of urinary system; Z90.49 Acquired absence of other specified parts of digestive tract; Z88.6 Allergy status to analgesic agent; Z79.899 Other long term (current) drug therapy; Z80.7 Family history of other malignant neoplasms of lymphoid, hematopoietic and related tissues; Z80.1 Family history of malignant neoplasm of trachea, bronchus and lung
CPT/HCPCS: 36415; 71046; 71275; 80048; 80053; 80061; 82164; 82553; 83880; 84484; 84550; 84703; 85025; 85379; 87633; 93005; 93010; 93306; 93458; 93798; 94640; 94664; 94760; 99406; A4216; C1769; J0456; J0696; J1644; J1650; J1940; J2001; J2920; J7050; J7506; J7620

== ENCOUNTER 2018-03-12 08:47 | Emergency (ER) | payer MEDICARE, MEDICAID ==
[2018-03-12 09:12] LABS: #Basophils 0.1 thou/uL (0.0-0.2); #Eosinphils 0.1 thou/uL (0.0-0.7); #Lymphocytes 3.7 thou/uL (1.20-3.40); #Monocytes 0.9 thou/uL (0.11-0.59); #Neutrophils 7.3 thou/uL (1.40-6.50); %Basophils 1.1 % (0.0-1.0); %Eosinophils 0.6 % (0.0-10.0); %Lymphocytes 30.6 % (21.0-51.0); %Monocytes 7.7 % (0.0-10.0); Hemoglobin 13.9 g/dL (12.0-16.0); Mean Corpuscular HGB CONC 32.5 g/dL (32.0-36.0); Mean Corpuscular Hemoglobin 29.9 pg (27.0-31.0); Mean Corpuscular Volume 92.1 fL (78.0-98.0); Mean Platelet Volume 7.3 fL (7.4-10.4); Platelet Count 236 thou/uL (130-400); RBC Distribution Width 13.1 % (11.5-14.5); Red Blood Cell (RBC) Count 4.64 mill/uL (4.20-5.40); White Blood Cell (WBC) Count 12.2 thou/uL (4.8-10.8)
[2018-03-12 09:34] LABS: ALT (SGPT) 75 U/L (8-55); AST (SGOT) 19 U/L (5-34); Albumin 3.8 g/dL (3.5-5.0); Alkaline Phosphatase 61 U/L (40-150); Anion Gap 12 mmol/L (10-20); BUN (Urea Nitrogen) 21 mg/dL (7.0-18.7); Bilirubin, Total 1.1 mg/dL (0.2-1.2); CK (CPK) 39 U/L (29-168); Calc. Creatinine Clearance 0 mL/min (70-130); Carbon Dioxide 27 mmol/L (22-29); Chloride 99 mmol/L (98-107); Estimated GFR-MDRD 75; Globulin 3.1 g/dL (2.4-3.5); Glucose 118 mg/dL (70-105); Lipase Less than 4 U/L (8-78); Potassium 3.4 mmol/L (3.5-5.1); Protein, Total 6.9 g/dL (6.0-8.3); Sodium 135 mmol/L (136-145)
[2018-03-12 09:38] LABS: CKMB 0.5 ng/mL (0-6.6); Troponin I 0.046 ng/mL (< 0.028)
[2018-03-12] MEDS ORDERED: ISOVUE-370 76%-LOCM 1 ML ONE (09:42)
[2018-03-12] MEDS ORDERED: Lorazepam 2 MG/ML VIAL ONE (09:49)
--- NOTE | 2018-03-12 10:10 | RAD ---
CHEST 1 VIEW: HISTORY: Dyspnea. Congestive heart failure. COMPARISON: Radiograph 03/06/18. FINDINGS: The heart size is enlarged. Overlying life vest limits evaluation. No focal airspace consolidation, pneumothorax, or effusion. IMPRESSION: Mild cardiomegaly. POS: [facility]
--- NOTE | 2018-03-12 12:21 | CT ---
CT ARTERIOGRAM CHEST WITH IV CONTRAST AND 3D MIP IMAGING: Date: 03/12/18 HISTORY: Elevated D-Dimer. Dyspnea. COMPARISON: Multiple exams back to 07/30/11. FINDINGS: There is good contrast opacification of the pulmonary arteries. Contrast has not reached the aorta at the time of imaging. Reactive appearing mediastinal lymph nodes are again demonstrated. Low density lesion within the upper anterior mediastinum is less pronounced than on the recent CT arteriogram [address] [facility] and may represent reactive thymus gland. IMPRESSION: 1. No CT evidence of pulmonary embolus. 2. Other findings are stable. POS: [facility]
== END 2018-03-12 13:13 | disposition home or self-care (01) ==
LOC: ERS 08:47
DX: R06.00 Dyspnea, unspecified (principal); M79.604 Pain in right leg; M79.605 Pain in left leg; I50.9 Heart failure, unspecified; F31.9 Bipolar disorder, unspecified; F20.9 Schizophrenia, unspecified; Z87.891 Personal history of nicotine dependence; Z79.899 Other long term (current) drug therapy
CPT/HCPCS: 36415; 71045; 71275; 80053; 82550; 82553; 83690; 83880; 84484; 85025; 85379; 93005; 94760; 96374; J2060

== ENCOUNTER 2018-03-13 18:17 | Emergency (ER) | payer MEDICARE, OTHER ==
[2018-03-13 19:50] LABS: #Basophils 0.1 thou/uL (0.0-0.2); #Lymphocytes 2.2 thou/uL (1.20-3.40); #Monocytes 1.8 thou/uL (0.11-0.59); #Neutrophils 15.7 thou/uL (1.40-6.50); %Basophils 0.6 % (0.0-1.0); %Eosinophils 0.1 % (0.0-10.0); %Neutrophils 79.3 % (42.0-75.0); Hemoglobin 13.6 g/dL (12.0-16.0); Mean Corpuscular HGB CONC 32.2 g/dL (32.0-36.0); Mean Corpuscular Hemoglobin 30.1 pg (27.0-31.0); Mean Corpuscular Volume 93.5 fL (78.0-98.0); Mean Platelet Volume 7.4 fL (7.4-10.4); Platelet Count 198 thou/uL (130-400); White Blood Cell (WBC) Count 19.8 thou/uL (4.8-10.8)
[2018-03-13 20:07] LABS: ALT (SGPT) 101 U/L (8-55); AST (SGOT) 67 U/L (5-34); Albumin 3.7 g/dL (3.5-5.0); Alkaline Phosphatase 51 U/L (40-150); Anion Gap 14 mmol/L (10-20); BUN (Urea Nitrogen) 12 mg/dL (7.0-18.7); Bilirubin, Total 2.2 mg/dL (0.2-1.2); Calc. Creatinine Clearance 0 mL/min (70-130); Calcium 8.8 mg/dL (7.8-10.44); Carbon Dioxide 21 mmol/L (22-29); Chloride 100 mmol/L (98-107); Estimated GFR-MDRD 88; Globulin 3.4 g/dL (2.4-3.5); Glucose 87 mg/dL (70-105); Potassium 3.6 mmol/L (3.5-5.1); Protein, Total 7.1 g/dL (6.0-8.3); Sodium 131 mmol/L (136-145)
[2018-03-13 20:21] LABS: Bilirubin Small (Negative); Blood, Urine Negative (Negative); Clarity CLOUDY (Clear); Glucose, Urine (Dipstick) Negative (Negative); Leukocyte Large (Negative); Nitrite Negative (Negative); Pregnancy Test - Urine (BHCG) Negative (Negative); Pregu Control Background? CLEAR/WHITE (CLR/WHITE); Pregu Control Bar Appear? YES (CONTROL BAR); Protein, Urine (Dipstick) 30 mg/dL (Neg-Trace); Specific Gravity 1.022 (1.002-1.036); Specific Gravity, Urine 1.022 (1.002-1.036); Urobilinogen 0.2 mg/dL (0.2-1.0); pH, Urine 6.5 (5.0-9.0)
[2018-03-13 20:27] LABS: Bacteria/HPF None Seen HPF (None Seen); Hyaline Casts/LPF 0-3 HYALINE CAST LPF (0-3 Hyaline); Pathc Cast-AUWi Flag 0.29 (0-2.49); WBC/HPF 21-50 HPF (0-3)
[2018-03-13 20:37] LABS: Renal Epithelial None Seen HPF (0-3); Transitional Epithelial NONE SEEN HPF (0-3); Trichomonas/HPF 1+ HPF (None Seen)
[2018-03-13 21:05] LABS: Lipase 4 U/L (8-78)
--- NOTE | 2018-03-13 22:17 | CT ---
CT ABDOMEN WITHOUT CONTRAST CT PELVIS WITHOUT CONTRAST 03/13/18 HISTORY: Left flank pain. Vomiting and nausea. COMPARISON: None. TECHNIQUE: Abdomen and pelvic CT performed without IV or oral contrast. Coronal reformatted images are submitted for interpretation. FINDINGS: ABDOMEN CT: Dependent atelectatic change of the lung bases. Heart size is enlarged. No significant pericardial fl uid. The descending thoracic aorta and abdominal aorta have a normal caliber. No periaortic fat stran ding. Gallbladder is surgically absent. Limited evaluation of the solid organs due to lack of oral contrast as well as due to by beam attenua tion artifact from patient's defibrillator. Grossly, no solid organ abnormality. There is dehiscence of the ventral abdominal wall without noe evidence of bowel herniation. A component of mesenteric h erniation cannot be completely excluded. Limited evaluation of the alimentary canal due to lack of or al contrast. No evidence of bowel obstruction. Normal caliber appendix is suggested. Scattered fecal material in a nondistended, nondilated colon. No mesenteric mass, lymphadenopathy, free air or free fluid. Bilaterally, no hydronephrosis, nephrolithiasis or perinephric fat stranding. Bilateral ureters have a normal caliber. No hydroureter, periureteral fat stranding or ureterolithiasis. Occasional diverticulum in the left hemicolon. PELVIC CT: No mass, lymphadenopathy, free air or free fluid. Uterus and adnexal structures are grossly unremarka ble. Decompressed urinary bladder limits evaluation. No lytic or blastic lesions in the osseous structures. IMPRESSION: No acute abnormality in the abdomen or pelvis. Enlarged cardiac silhouette. POS: [facility]
== END 2018-03-13 23:32 | disposition home or self-care (01) ==
LOC: ERS 18:17
DX: N39.0 Urinary tract infection, site not specified (principal); A59.9 Trichomoniasis, unspecified; I11.0 Hypertensive heart disease with heart failure; I50.9 Heart failure, unspecified; I25.2 Old myocardial infarction; F31.9 Bipolar disorder, unspecified; F20.9 Schizophrenia, unspecified; Z87.891 Personal history of nicotine dependence; Z87.442 Personal history of urinary calculi; Z79.899 Other long term (current) drug therapy
CPT/HCPCS: 36415; 74176; 80053; 81003; 81015; 81025; 83690; 85025; 93005; 96361; 96374; 96376; J2270

== ENCOUNTER 2018-03-16 23:24 | Inpatient (IN) | payer MEDICARE, MEDICAID ==
--- NOTE | 2018-03-16 23:59 | RAD ---
CHEST ONE VIEW: HISTORY: Chest pain. COMPARISON: Chest radiograph from 03/12/2018. FINDINGS: The heart size is enlarged. No pneumothorax or effusion. LifeVest is in place. IMPRESSION: Marked cardiomegaly. POS: [facility]
[2018-03-17] MEDS ORDERED: Ondansetron ODT 4 MG TAB ONE (00:03)
[2018-03-17 00:18] LABS: #Basophils 0.1 thou/uL (0.0-0.2); #Eosinphils 0.1 thou/uL (0.0-0.7); #Lymphocytes 2.1 thou/uL (1.20-3.40); #Monocytes 1.4 thou/uL (0.11-0.59); #Neutrophils 11.4 thou/uL (1.40-6.50); %Basophils 0.4 % (0.0-1.0); %Eosinophils 0.5 % (0.0-10.0); %Lymphocytes 14.1 % (21.0-51.0); %Monocytes 9.5 % (0.0-10.0); %Neutrophils 75.5 % (42.0-75.0); Hemoglobin 11.5 g/dL (12.0-16.0); Mean Corpuscular HGB CONC 32.4 g/dL (32.0-36.0); Mean Corpuscular Volume 92.5 fL (78.0-98.0); Mean Platelet Volume 7.2 fL (7.4-10.4); Platelet Count 277 thou/uL (130-400); Red Blood Cell (RBC) Count 3.84 mill/uL (4.20-5.40); White Blood Cell (WBC) Count 15.1 thou/uL (4.8-10.8)
[2018-03-17 00:39] LABS: ALT (SGPT) 78 U/L (8-55); AST (SGOT) 40 U/L (5-34); Albumin 3.8 g/dL (3.5-5.0); Alkaline Phosphatase 81 U/L (40-150); Anion Gap 13 mmol/L (10-20); BUN (Urea Nitrogen) 15 mg/dL (7.0-18.7); Bilirubin, Total 3.6 mg/dL (0.2-1.2); CK (CPK) 36 U/L (29-168); Calc. Creatinine Clearance 0 mL/min (70-130); Calcium 9.6 mg/dL (7.8-10.44); Carbon Dioxide 28 mmol/L (22-29); Chloride 99 mmol/L (98-107); Estimated GFR-MDRD 75; Globulin 3.6 g/dL (2.4-3.5); Glucose 124 mg/dL (70-105); Protein, Total 7.4 g/dL (6.0-8.3); Sodium 137 mmol/L (136-145)
[2018-03-17 00:42] LABS: CKMB 0.4 ng/mL (0-6.6); Troponin I 0.081 ng/mL (< 0.028)
[2018-03-17 00:43] LABS: Potassium 2.9 mmol/L (3.5-5.1)
[2018-03-17 02:33] LABS: Bacteria/HPF None Seen HPF (None Seen); Bilirubin Small (Negative); Blood, Urine Negative (Negative); Clarity Clear (Clear); Glucose, Urine (Dipstick) Negative (Negative); Leukocyte Small (Negative); Nitrite Negative (Negative); Protein, Urine (Dipstick) Negative (Neg-Trace); RBC/HPF None Seen HPF (0-3); Squamous Epithelial 0-3 HPF (0-3); WBC/HPF 0-3 HPF (0-3)
[2018-03-17 02:34] LABS: Hyaline Casts/LPF NONE SEEN LPF (0-3 Hyaline)
[2018-03-17 03:31] LABS: Amphetamine Not Detected (NotDetected); Barbiturates Screen Not Detected (NotDetected); Benzodiazepine Screen Not Detected (NotDetected); Cocaine Metabolite Screen Not Detected (NotDetected); Medtox Control Line Valid? VALID (VALID); Medtox Reader # READER 1; Methadone Not Detected (NotDetected); Methamphetamine Not Detected (NotDetected); Opiate Screen Detected (NotDetected); Oxycodone Screen Not Detected (NotDetected); Phencyclidine (PCP) Not Detected (NotDetected); THC/Cannabinoid Screen Detected (NotDetected); Tricyclic Screen Detected (NotDetected)
[2018-03-17 04:08] LABS: Acetaminophen Less than 6.0 mcg/mL (10.0-30.0); Alcohol Less than 10 mg/dL (Less than 10); Salicylate Less than 8.0 mg/dL (15.0-30.0)
[2018-03-17] MEDS ORDERED: Enoxaparin Sodium 100 MG/ML SYRINGE ONE (04:24)
[2018-03-17] MEDS ORDERED: Nitroglycerin 2% Ointment 1 INCH/1 GM Packet ONE (04:24)
[2018-03-17] MEDS ORDERED: Enoxaparin Sodium 30 MG/0.3 ML SYRINGE ONE (04:36)
[2018-03-17 06:12] LABS: Troponin I 6.254 ng/mL (< 0.028)
[2018-03-17 07:16] LABS: Troponin I 13.519 ng/mL (< 0.028)
[2018-03-17 07:42] LABS: Critical Call Chem Troponin I Y
[2018-03-17] MEDS ORDERED: Iopamidol 370 76% 100 ML VIAL ONE (09:57)
[2018-03-17] MEDS ORDERED: Iopamidol 370 76% 50 ML VIAL FS ONE (09:57)
--- NOTE | 2018-03-17 10:07 | CT ---
PRELIMINARY REPORT/[facility]/EMERGENTY AFTER-HOURS PROCEDURE CT Angiography Chest With Intravenous Contrast CLINICAL HISTORY: 32 years old, female; Pain; Chest pain; Patient HX: 32f presents to the ed for evaluation of chest pa in and nausea starting around 5pm today. Reports seeing "white dots" and has numbness, tingling to bi lateral feet all day. TECHNIQUE: Axial computed tomographic angiography images of the chest with intravenous contrast using pulmonary embolism protocol. MIP reconstructed images were created and reviewed. COMPARISON: No relevant prior studies available. FINDINGS: Pulmonary arteries: There is no evidence of peripheral filling defects within the pulmonary arterial circulation to suggest pulmonary embolism. Aorta: No acute findings. No thoracic aortic aneurysm. Lungs: Normal. No mass. No consolidation. Pleural space: Normal. No significant effusion. No pneumothorax. Heart: Normal. No cardiomegaly. No significant pericardial effusion. No evidence of RV dysfunction. Mediastinum: The trachea is normal. Thyroid: The visualized thyroid gland is unremarkable. Bones/joints: No acute fracture. No dislocation. Soft tissues: Normal. Lymph nodes: Normal. No enlarged lymph nodes. Gallbladder and bile ducts: There has been a cholecystectomy. IMPRESSION: There is no CT evidence of acute pulmonary embolism. Thank you for allowing us to participate in the care of your patient. Dictated and Authenticated by: Se Soler MD 03/17/2018 3:05 AM Central Time ([place] & [place]) FINAL REPORT CT ARTERIOGRAM CHEST WITH IV CONTRAST AND 3D MIP IMAGING: DATE: 03/17/18. TIME: Performed on an emergency basis at 0203 hours. HISTORY: Chest pain. Dyspnea. COMPARISON: 03/12/18. FINDINGS: Findings agree with the preliminary report by Dr. Teran from [facility]. No CT evidence of p ulmonary embolus. Chronic-type findings are stable. POS: [facility]
[2018-03-17] MEDS ORDERED: ISOVUE-370 76%-LOCM 1 ML ONE (10:33)
[2018-03-17] MEDS ORDERED: Acetaminophen 325 MG TAB PO PRN (10:43)
[2018-03-17] MEDS ORDERED: Ondansetron HCl/PF 4 MG/2 ML Vial IVP PRN (10:43)
[2018-03-17] MEDS ORDERED: Ondansetron ODT 4 MG TAB SL PRN (10:43)
[2018-03-17] MEDS ORDERED: Sodium Chloride 0.9% 1,000 ML IV SCH ×2 (11:00→18:45)
[2018-03-17] MEDS ORDERED: Communication Order-Pharmacy FS SCH (12:00)
[2018-03-17] MEDS ORDERED: Clopidogrel Bisulfate 300 MG TAB PO SCH (12:00)
[2018-03-17 12:18] LABS: Troponin I 21.881 ng/mL (< 0.028)
[2018-03-17 12:45] LABS: ALT (SGPT) 183 U/L (8-55); AST (SGOT) 322 U/L (5-34); Albumin 3.6 g/dL (3.5-5.0); Alkaline Phosphatase 211 U/L (40-150); Anion Gap 13 mmol/L (10-20); BUN (Urea Nitrogen) 12 mg/dL (7.0-18.7); Bilirubin, Total 3.5 mg/dL (0.2-1.2); Calc. Creatinine Clearance 178 mL/min (70-130); Calcium 9.6 mg/dL (7.8-10.44); Carbon Dioxide 28 mmol/L (22-29); Chloride 99 mmol/L (98-107); Estimated GFR-MDRD 82; Globulin 3.5 g/dL (2.4-3.5); Glucose 82 mg/dL (70-105); Potassium 3.4 mmol/L (3.5-5.1); Protein, Total 7.1 g/dL (6.0-8.3); Sodium 137 mmol/L (136-145)
[2018-03-17] MEDS ORDERED: Potassium Chloride 20 MEQ TAB PO SCH (12:45)
[2018-03-17] MEDS ORDERED: Lidocaine 1% (PF) 30 ML VIAL ONE (13:58)
--- NOTE | 2018-03-17 14:17 | HP ---
ATTENDING PHYSICIAN: Dr. Jerod Hernández DATE OF ADMISSION: 03/17/2018 CHIEF COMPLAINT: Chest pain. HISTORY OF PRESENT ILLNESS: This is a 32-year-old morbidly obese female with a know n history of nonischemic cardiomyopathy, recently diagnosed 2 weeks ago when she presented with acute chest pain with hemoptysis. The patient had a cardiac catheterization last admission that was compl etely unremarkable. The patient went home and she was watching television last night, she developed a sudden onset of chest pain, throbbing type in the precordium on the left side associated with left arm numbness and also pain radiating to the right arm. Pain was excruciating, was 9/10 in intensity, associated with severe shortness of breath and associated with dizziness and nausea and jaw clenchin g. All typical symptoms of NH. She came to the ER, had a normal EKG, but had markedly elevated trop onins to 19. The patient had a CTA to rule out any evidence of dissection or PE which came back norm al. It did not show any evidence of pulmonary embolus. The patient was seen by Cardiology today and planned for catheterization. The patient denies taking any other drugs, but she is a known smoker with marijuana. PAST MEDICAL HISTORY: 1. History of asthma. 2. History of seizure disorder at 13 years of age. 3. History of schizoaffective disorder. 4. History of depression. PAST SURGICAL HISTORY: 1. x2. 2. Cholecystectomy. ALLERGIES: IBUPROFEN. SOCIAL HISTORY: She is a known smoker, smoked 1 pack a day and uses marijuana. Does not drink alcoh ol. No history of illicit drug use. She lives with her mom. FAMILY HISTORY: Mother has a history of multiple myeloma. Father of lung cancer at age of 74. CODE STATUS: Code status has been reviewed. The patient is a full code and her medical power of att amanda is her cousin Mary Anne ____. HOME MEDICATIONS: 1. Albuterol inhaler q.6 hours p.r.n. 2. Coreg 3.125 mg p.o. daily. 3. Lexapro 20 mg p.o. b.i.d. 4. Lasix 40 mg p.o. daily. 5. Keppra 1000 mg p.o. b.i.d. 6. Lisinopril 2.5 mg p.o. daily. 7. Nitroglycerin. 8. Seroquel 100 mg at bedtime. PHYSICAL EXAMINATION: VITAL SIGNS: Blood pressures are 110/63, heart rate is 94, respiration rate 16, saturation 96% on ro om air. GENERAL: The patient is moderately built and moderately nourished, does not appear to be in acute di stress at this time. She is alert, oriented x3. HEENT: Atraumatic, normocephalic, PERRLA. Extraocular muscles were intact. Oral mucosa is pink and moist. CARDIOVASCULAR: S1, S2 normal. No murmurs, rubs or gallops. LUNGS: Bilateral air entry was equal. No wheezing, no crackles. ABDOMEN: Soft, nontender, no guarding, no rebound tenderness. Bowel sounds are normal. MUSCULOSKELETAL: No calf tenderness. No pedal edema. EXTREMITIES: No joint tenderness, no joint swelling. SKIN: No cyanosis, no erythema, no rash, no pallor. NEUROLOGIC: Cranial nerves examination II through XII intact. No focal deficits were noted at this time. LABORATORY DATA: WBC 15.1, hemoglobin 11.5, hematocrit 35.5, platelets normal. D-dimer is elevated at 3.92. Sodium is 137, potassium 3.4, chloride is 99, BUN 12, creatinine is 0.96. Troponin is 4.25. AST 322 , ALT of 183. ASSESSMENT AND PLAN: 1. Ict-IB-khdopko elevation myocardial infarction. 2. Acute congestive heart failure. 3. Leukocytosis. 4. Congestive hepatopathy. 5. History of cardiomyopathy. The plan is to follow up with the Cardiology recommendations at this time, admit the patient and keep her n.p.o. We will start the patient on Lovenox 1 mg b.i.d. The hanna godinez is high risk for coronary artery disease, history of smoker and has a recent history of a non- ST-segment elevation myocardial infarction. Discussed with Cardiology, Dr. Escalante. He plans to ca th her this afternoon. Patient received aspirin in the ER. We will continue with aspirin at this ti me along with beta blockers. 6. The patient has markedly elevated liver enzymes, likely this could be the reason for congestive h epatopathy from congestive heart failure. We will closely monitor and we will continue the patient o n Lasix when she returns from the laboratory animal caretaker. We will get a 2D echo to look for any evidence of wall m otion or any worsening ejection fraction. 7. The patient is a chronic smoker. We will do a nicotine patch at this time. 8. Elevated white count, no evidence of any infection was noted. We will closely monitor. Most lik yolis this could be a stress reaction from the heart. 9. Deep venous thrombosis prophylaxis. The patient is on Lovenox. I spent 75 minutes with this patient.
--- NOTE | 2018-03-17 14:34 | CON ---
DATE OF CONSULTATION: 03/17/2018 HISTORY OF PRESENT ILLNESS: The patient is a 32-year-old woman, who presents for evaluation of chest discomfort and dyspnea. The patient was recently diagnosed with a nonischemic cardiomyopathy. She underwent a cardiac catheterization, which revealed her to have a severe decrease in left ventricular systolic function with normal coronary arteries. The patient was placed on medical therapy. She has had placement of Zoll LifeVest. The patient was in her usual state of health when she developed acute onset of midsternal chest discomfort. She became markedly diaphoretic and dyspneic. She came to the emergency with resolution of her chest pain. PAST MEDICAL HISTORY: , 1. Cardiomyopathy. 2. Schizophrenia. 3. Seizure disorder. 4. Depression. 5. History of mediastinal mass. PAST SURGICAL HISTORY: , cholecystectomy. ALLERGIES: No known drug allergies. FAMILY HISTORY: No strong family history of heart disease. MEDICATIONS: Coreg 3.125 b.i.d., Lexapro 20 b.i.d., Lasix 40 daily, lisinopril 2.5 daily, Seroquel 100 at bedtime, Keppra 1000 b.i.d. REVIEW OF SYSTEMS: Ten-point system, otherwise, unremarkable. SOCIAL HISTORY: The patient has a long history of tobacco abuse and use of marijuana. PHYSICAL EXAMINATION: GENERAL: Obese woman in no acute distress. VITAL SIGNS: Blood pressure 110/63 and heart rate was 94. NECK: Showed no jugular distention, no carotid bruits. LUNGS: Clear to auscultation. HEART: Regular rate and rhythm, normal S1 and S2, no murmurs. ABDOMEN: Distended. EXTREMITIES: Showed no edema. SKIN: Warm and dry. NEUROLOGIC EXAM: Nonfocal. VASCULAR: Radial pulses 2+. LABORATORY RESULTS: Sodium 137, potassium 2.9, chloride 99, bicarbonate 28, BUN 15, creatinine is 1.04, glucose 124, troponin was 13.51. Her AST was 40. Her white blood cell count is 15.1, hemoglobin 11.5, hematocrit 35.5, platelets 277. Her toxicology was positive for cannabinoids and opiates. Her EKG revealed normal sinus rhythm with a nonspecific ST-T-wave abnormality. IMPRESSION: 1. Myocardial infarction. 2. History of nonischemic cardiomyopathy. 3. Tobacco abuse. 4. History of mediastinal mass. 5. Schizoaffective disorder. This patient presents with a non-Q-wave myocardial infarction. We would recommend proceeding with a repeat catheterization to see if she has developed progressive coronary artery disease. The risks of the procedure, VT, bleeding, stroke, cardiac arrhythmia, cardiac have been explained to the patient. Risks involved with stent placement and restenosis have been explained. The patient understands these risks and wishes to proceed. CHRISTINE
[2018-03-17] MEDS ORDERED: Midazolam HCl 2 mg/2 ml Vial ONE (17:09)
[2018-03-17] MEDS ORDERED: Heparin 10,000 UNITS/1 ML VIAL ONE ×2 (17:33→18:24)
[2018-03-17 20:38] LABS: INR-International Normal Ratio 1.3; Prothrombin Time 16.1 SEC (12.0-14.7)
[2018-03-17] MEDS ORDERED: Enoxaparin Sodium 30 MG/0.3 ML SYRINGE SC SCH (21:00)
[2018-03-17] MEDS ORDERED: Enoxaparin Sodium 100 MG/ML SYRINGE SC SCH (21:00)
[2018-03-17] MEDS ORDERED: Atorvastatin Calcium 40 MG TAB PO SCH (21:00)
[2018-03-17] MEDS: Enoxaparin Sodium 30 MG/0.3 ML SYRINGE SC SCH (21:05)
[2018-03-17] MEDS: Enoxaparin Sodium 100 MG/ML SYRINGE SC SCH (21:13)
[2018-03-17] MEDS: Escitalopram Oxalate 20 mg Tablet PO SCH (21:14)
[2018-03-17] MEDS: Carvedilol 3.125 MG TAB PO SCH (21:15)
[2018-03-17] MEDS: levETIRAcetam 500 MG TAB PO SCH (21:15)
[2018-03-17] MEDS ORDERED: Warfarin Sodium 5 MG TAB PO SCH (21:45)
[2018-03-17] MEDS: Nitroglycerin 0.4 MG TAB (25 Tab Bottle) PO PRN ×3 (23:00→23:11)
[2018-03-18] MEDS: Nicotine 21 MG PATCH TD SCH ×2 (00:05→09:25)
[2018-03-18 05:35] LABS: #Eosinphils 0.1 thou/uL (0.0-0.7); #Lymphocytes 3.1 thou/uL (1.20-3.40); #Monocytes 1.1 thou/uL (0.11-0.59); #Neutrophils 7.2 thou/uL (1.40-6.50); %Basophils 0.4 % (0.0-1.0); %Eosinophils 0.8 % (0.0-10.0); %Lymphocytes 26.7 % (21.0-51.0); %Monocytes 9.7 % (0.0-10.0); %Neutrophils 62.4 % (42.0-75.0); Hemoglobin 10.7 g/dL (12.0-16.0); Mean Corpuscular HGB CONC 31.9 g/dL (32.0-36.0); Mean Corpuscular Hemoglobin 29.9 pg (27.0-31.0); Mean Corpuscular Volume 93.7 fL (78.0-98.0); Mean Platelet Volume 7.5 fL (7.4-10.4); Platelet Count 293 thou/uL (130-400); RBC Distribution Width 13.2 % (11.5-14.5); Red Blood Cell (RBC) Count 3.57 mill/uL (4.20-5.40); White Blood Cell (WBC) Count 11.5 thou/uL (4.8-10.8)
[2018-03-18 05:57] LABS: ALT (SGPT) 126 U/L (8-55); AST (SGOT) 123 U/L (5-34); Albumin 3.4 g/dL (3.5-5.0); Alkaline Phosphatase 161 U/L (40-150); Anion Gap 12 mmol/L (10-20); BUN (Urea Nitrogen) 11 mg/dL (7.0-18.7); Bilirubin, Total 1.3 mg/dL (0.2-1.2); Calc. Creatinine Clearance 216 mL/min (70-130); Calcium 9.4 mg/dL (7.8-10.44); Carbon Dioxide 24 mmol/L (22-29); Chloride 105 mmol/L (98-107); Cholesterol 139 mg/dl (< 200 Desired); Estimated GFR-MDRD Greater than 90; Globulin 3.2 g/dL (2.4-3.5); Glucose 95 mg/dL (70-105); HDL Cholesterol 35 mg/dL (>60 Neg Risk); LDL Cholesterol, Calculated 82 mg/dL; Potassium 4.3 mmol/L (3.5-5.1); Protein, Total 6.6 g/dL (6.0-8.3); Sodium 137 mmol/L (136-145); Triglycerides 108 mg/dL (Less than 150)
[2018-03-18] MEDS ORDERED: Aspirin 325 MG TAB PO SCH (09:00)
[2018-03-18] MEDS ORDERED: Lisinopril 5 MG TAB PO SCH (09:15)
[2018-03-18] MEDS ORDERED: Lisinopril 2.5 MG TAB PO SCH (09:15)
[2018-03-18] MEDS: Enoxaparin Sodium 30 MG/0.3 ML SYRINGE SC SCH ×2 (09:24→21:41)
[2018-03-18] MEDS: Enoxaparin Sodium 100 MG/ML SYRINGE SC SCH ×2 (09:24→21:40)
[2018-03-18] MEDS: Carvedilol 3.125 MG TAB PO SCH ×2 (09:25→21:40)
[2018-03-18] MEDS: Escitalopram Oxalate 20 mg Tablet PO SCH ×2 (09:25→21:40)
[2018-03-18] MEDS: levETIRAcetam 500 MG TAB PO SCH ×2 (09:25→21:39)
[2018-03-18] MEDS: Nitroglycerin 0.4 MG TAB (25 Tab Bottle) PO PRN ×2 (10:18→10:21)
--- NOTE | 2018-03-18 12:41 | PDOC.PN ---
- Subjective Encounter Start Date: 03/18/18 Encounter Start Time: 11:15 Subjective: mild chest pain in retrosternal area this am -: no sob, didn't eat her breakfast yet - Objective MAR Reviewed: Yes Vital Signs & Weight: Vital Signs (12 hours) Temp Pulse Pulse Pulse Resp BP BP 03/18/18 09:57 88 99 125/85 131/88 03/18/18 08:00 98.7 F 91 16 03/18/18 03:28 98.9 F 90 17 BP BP Pulse Ox Pulse Ox Pulse Ox 03/18/18 09:57 98 98 03/18/18 08:00 131/89 99 03/18/18 03:28 96/58 L 97 Weight Weight 292 lb 8 oz Result Diagrams: 03/18/18 04:41 03/18/18 04:41 Phys Exam - Physical Examination HEENT: PERRLA, moist MMs Neck: no JVD, supple Respiratory: no wheezing, no rales Cardiovascular: RRR, no significant murmur Gastrointestinal: soft, non-tender, positive bowel sounds Musculoskeletal: no edema, pulses present Neurological: non-focal, moves all 4 limbs Psychiatric: A&O x 3 Dx/Plan (1) CAD (coronary artery disease) Code(s): I25.10 - ATHSCL HEART DISEASE OF [place] CORONARY ARTERY W/O ANG PCTRS Status: Acute Qualifiers: Coronary Disease-Associated Artery/Lesion type: [place] artery [place] vs. transplanted heart: [place] heart Comment: s/p thrombectomy from mid RCA (2) Obesity Code(s): E66.9 - OBESITY, UNSPECIFIED Status: Chronic Qualifiers: Obesity classification: adult class 3 (BMI >= 40) Body mass index: BMI 40.0 -44.9 (3) Acute systolic CHF (congestive heart failure), NYHA class 4 Code(s): I50.21 - ACUTE SYSTOLIC (CONGESTIVE) HEART FAILURE Status: Acute Comment: ef of 10%, has life vest (4) Asthma Code(s): J45.909 - UNSPECIFIED ASTHMA, UNCOMPLICATED Status: Chronic Qualifiers: Asthma severity: unspecified severity Asthma persistence: intermittent Asthma complication type: unspecified Qualified Code(s): J45.20 - Mild intermittent asthma, uncomplicated (5) Cardiomyopathy Code(s): I42.9 - CARDIOMYOPATHY, UNSPECIFIED Status: Acute Qualifiers: Cardiomyopathy type: unspecified Qualified Code(s): I42.9 - Cardiomyopathy , unspecified (6) Mediastinal mass Status: Chronic (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 Review of Systems - Medications/Allergies Allergies/Adverse Reactions: Allergies Allergy/AdvReac Type Severity Reaction Status Date / Time ibuprofen Allergy Verified 03/06/18 14:46 NSAIDS (Non-Steroidal Allergy Verified 03/06/18 14:46 Anti-Inflamma peanut Allergy Verified 03/06/18 14:46 Medications: Current Medications Aspirin (Aspirin Chewable) 81 mg PO DAILY [facility] Last Admin: 03/18/18 09:25 Dose: 81 mg Carvedilol (Coreg) 3.125 mg PO BID [facility] Last Admin: 03/18/18 09:25 Dose: 3.125 mg Enoxaparin Sodium (Lovenox) 100 mg SC 0900,2100 [facility] Last Admin: 03/18/18 09:24 Dose: 100 mg Enoxaparin Sodium (Lovenox) 30 mg SC 0900,2100 [facility] Last Admin: 03/18/18 09:24 Dose: 30 mg Escitalopram Oxalate (Lexapro) 20 mg PO BID [facility] Last Admin: 03/18/18 09:25 Dose: 20 mg Levetiracetam (Keppra) 1,000 mg PO BID [facility] Last Admin: 03/18/18 09:25 Dose: 1,000 mg Lisinopril (Zestril) 2.5 mg PO BID [facility] Nicotine (Nicoderm Patch) 21 mg TD Q24HR [facility] Last Admin: 03/18/18 09:25 Dose: 21 mg Nitroglycerin (Nitrostat) 0.4 mg PO Q5MIN PRN PRN Reason: Chest Pain Last Admin: 03/18/18 10:21 Dose: 0.4 mg Quetiapine Fumarate (Seroquel) 100 mg PO HS [facility] Last Admin: 03/17/18 21:14 Dose: 100 mg Sodium Chloride (Flush - Normal Saline) 10 ml IVF PRN PRN PRN Reason: Saline Flush Warfarin Sodium (Coumadin) 5 mg PO 1700 [facility]
[2018-03-18 16:00] LABS: ANA Symphony (Qualitative) Negative (Negative); dsDNA IgG Antibody 1.4 IU/mL (<10 Negative)
[2018-03-18] MEDS ORDERED: Warfarin Sodium 5 MG TAB PO SCH (17:00)
[2018-03-18] MEDS: Lisinopril 2.5 MG TAB PO SCH (21:39)
[2018-03-19 06:18] LABS: INR-International Normal Ratio 1.2; Prothrombin Time 15.4 SEC (12.0-14.7)
--- NOTE | 2018-03-19 07:39 | EKG ---
Test Reason : STAT Blood Pressure : / mmHG Vent. Rate : 102 BPM Atrial Rate : 102 BPM P-R Int : 178 ms QRS Dur : 096 ms QT Int : 366 ms P-R-T Axes : 050 038 005 degrees QTc Int : 477 ms Sinus tachycardia Cannot rule out Anterior infarct , age undetermined Nonspecific ST-T changes Abnormal ECG When compared with ECG of 17-MAR-2018 04:20, (Unconfirmed) No significant change was found Confirmed by DR. Kane MEI ([id number]) on 03/19/2018 7:39:26 AM Referred By: NISHANT Confirmed By:DR. Kane MEI
--- NOTE | 2018-03-19 07:45 | EKG ---
Test Reason : Blood Pressure : / mmHG Vent. Rate : 087 BPM Atrial Rate : 087 BPM P-R Int : 184 ms QRS Dur : 098 ms QT Int : 414 ms P-R-T Axes : 054 013 -19 degrees QTc Int : 498 ms Normal sinus rhythm T wave abnormality, consider anterior ischemia Prolonged QT Abnormal ECG When compared with ECG of 17-MAR-2018 20:28, (Unconfirmed) No significant change was found Confirmed by DR. Kane MEI ([id number]) on 03/19/2018 7:44:44 AM Referred By: RG Confirmed By:DR. Kane MEI
[2018-03-19] MEDS: Enoxaparin Sodium 100 MG/ML SYRINGE SC SCH ×2 (07:57→20:08)
[2018-03-19] MEDS: Carvedilol 3.125 MG TAB PO SCH ×2 (07:57→20:08)
[2018-03-19] MEDS: Enoxaparin Sodium 30 MG/0.3 ML SYRINGE SC SCH ×2 (07:57→20:08)
[2018-03-19] MEDS: Escitalopram Oxalate 20 mg Tablet PO SCH ×2 (07:57→20:08)
[2018-03-19] MEDS: Lisinopril 2.5 MG TAB PO SCH (07:58)
[2018-03-19] MEDS: levETIRAcetam 500 MG TAB PO SCH ×2 (07:58→20:07)
[2018-03-19] MEDS ORDERED: Lisinopril 2.5 MG TAB PO SCH (09:13)
--- NOTE | 2018-03-19 12:01 | PDOC.PN ---
- Subjective Encounter Start Date: 03/19/18 Encounter Start Time: 07:30 Subjective: no chest pain or sob -: is amb in hallway - Objective MAR Reviewed: Yes Vital Signs & Weight: Vital Signs (12 hours) Temp Pulse Pulse Pulse Resp BP BP 03/19/18 10:57 98.2 F 89 17 03/19/18 09:19 106 H 87 154/91 H 113/84 03/19/18 07:58 85 03/19/18 07:53 98.8 F 85 16 03/19/18 04:00 99.2 F 84 12 BP BP Pulse Ox Pulse Ox Pulse Ox 03/19/18 10:57 98/57 L 95 03/19/18 09:19 96 99 03/19/18 07:58 03/19/18 07:53 107/74 95 03/19/18 04:00 117/84 94 L Weight Weight 292 lb 8 oz Result Diagrams: 03/18/18 04:41 03/18/18 04:41 Phys Exam - Physical Examination HEENT: PERRLA, moist MMs Neck: no JVD, supple Respiratory: no wheezing, no rales Cardiovascular: RRR, no significant murmur Gastrointestinal: soft, non-tender, positive bowel sounds Musculoskeletal: no edema, pulses present Neurological: non-focal, moves all 4 limbs Psychiatric: normal affect, A&O x 3 Dx/Plan (1) CAD (coronary artery disease) Code(s): I25.10 - ATHSCL HEART DISEASE OF [place] CORONARY ARTERY W/O ANG PCTRS Status: Acute Qualifiers: Coronary Disease-Associated Artery/Lesion type: [place] artery [place] vs. transplanted heart: [place] heart Comment: s/p thrombectomy from mid RCA (2) Obesity Code(s): E66.9 - OBESITY, UNSPECIFIED Status: Chronic Qualifiers: Obesity classification: adult class 3 (BMI >= 40) Body mass index: BMI 40.0 -44.9 (3) Acute systolic CHF (congestive heart failure), NYHA class 4 Code(s): I50.21 - ACUTE SYSTOLIC (CONGESTIVE) HEART FAILURE Status: Acute Comment: ef of 10%, has life vest (4) Asthma Code(s): J45.909 - UNSPECIFIED ASTHMA, UNCOMPLICATED Status: Chronic Qualifiers: Asthma severity: unspecified severity Asthma persistence: intermittent Asthma complication type: unspecified Qualified Code(s): J45.20 - Mild intermittent asthma, uncomplicated (5) Cardiomyopathy Code(s): I42.9 - CARDIOMYOPATHY, UNSPECIFIED Status: Acute Qualifiers: Cardiomyopathy type: unspecified Qualified Code(s): I42.9 - Cardiomyopathy , unspecified (6) Mediastinal mass Status: Chronic (7) Grand mal seizure disorder Code(s): G40.409 - OTH GENERALIZED EPILEPSY, NOT INTRACTABLE, W/O STAT EPI Status: Chronic (8) Schizophrenia Code(s): F20.9 - SCHIZOPHRENIA, UNSPECIFIED Status: Chronic Qualifiers: Schizophrenia type: unspecified Qualified Code(s): F20.9 - Schizophrenia, unspecified - Plan is on full dose lovenox and coumadin at 7.5mg -: coreg, asp, lisinopril -: hemostable -: ANS is -ve -: Keppra, seroquel and lexapro as before (hold if QT duration worsens) * . Review of Systems - Medications/Allergies Allergies/Adverse Reactions: Allergies Allergy/AdvReac Type Severity Reaction Status Date / Time ibuprofen Allergy Verified 03/06/18 14:46 NSAIDS (Non-Steroidal Allergy Verified 03/06/18 14:46 Anti-Inflamma peanut Allergy Verified 03/06/18 14:46 Medications: Current Medications Aspirin (Aspirin Chewable) 81 mg PO DAILY [facility] Last Admin: 03/19/18 07:57 Dose: 81 mg Carvedilol (Coreg) 3.125 mg PO BID [facility] Last Admin: 03/19/18 07:57 Dose: 3.125 mg Enoxaparin Sodium (Lovenox) 100 mg SC 0900,2100 [facility] Last Admin: 03/19/18 07:57 Dose: 100 mg Enoxaparin Sodium (Lovenox) 30 mg SC 0900,2100 [facility] Last Admin: 03/19/18 07:57 Dose: 30 mg Escitalopram Oxalate (Lexapro) 20 mg PO BID [facility] Last Admin: 03/19/18 07:57 Dose: 20 mg Levetiracetam (Keppra) 1,000 mg PO BID [facility] Last Admin: 03/19/18 07:58 Dose: 1,000 mg Lisinopril (Zestril) 5 mg PO BID [facility] Nicotine (Nicoderm Patch) 21 mg TD Q24HR [facility] Last Admin: 03/18/18 09:25 Dose: 21 mg Nitroglycerin (Nitrostat) 0.4 mg PO Q5MIN PRN PRN Reason: Chest Pain Last Admin: 03/18/18 10:21 Dose: 0.4 mg Quetiapine Fumarate (Seroquel) 100 mg PO HS [facility] Last Admin: 03/18/18 21:40 Dose: 100 mg Sodium Chloride (Flush - Normal Saline) 10 ml IVF PRN PRN PRN Reason: Saline Flush Warfarin Sodium (Coumadin) 7.5 mg PO 1700 [facility]
[2018-03-19] MEDS: Nicotine 21 MG PATCH TD SCH (14:36)
[2018-03-19] MEDS: Warfarin Sodium 7.5 MG TAB PO SCH (15:51)
[2018-03-19] MEDS: Lisinopril 5 MG TAB PO SCH (20:06)
[2018-03-20 05:53] LABS: INR-International Normal Ratio 1.3; Prothrombin Time 15.8 SEC (12.0-14.7)
[2018-03-20 05:55] LABS: Hemoglobin 10.5 g/dL (12.0-16.0); Platelet Count 297 thou/uL (130-400)
[2018-03-20 05:59] LABS: Anion Gap 12 mmol/L (10-20); BUN (Urea Nitrogen) 10 mg/dL (7.0-18.7); Calc. Creatinine Clearance 194 mL/min (70-130); Calcium 9.4 mg/dL (7.8-10.44); Carbon Dioxide 25 mmol/L (22-29); Chloride 106 mmol/L (98-107); Estimated GFR-MDRD Greater than 90; Glucose 82 mg/dL (70-105); Potassium 4.1 mmol/L (3.5-5.1); Sodium 139 mmol/L (136-145)
[2018-03-20] MEDS: Enoxaparin Sodium 100 MG/ML SYRINGE SC SCH ×2 (07:58→20:55)
[2018-03-20] MEDS: Carvedilol 3.125 MG TAB PO SCH (07:58)
[2018-03-20] MEDS: Lisinopril 5 MG TAB PO SCH ×2 (07:59→20:54)
[2018-03-20] MEDS: levETIRAcetam 500 MG TAB PO SCH ×2 (07:59→20:54)
[2018-03-20] MEDS: Escitalopram Oxalate 20 mg Tablet PO SCH ×2 (07:59→20:53)
[2018-03-20] MEDS: Enoxaparin Sodium 30 MG/0.3 ML SYRINGE SC SCH ×2 (07:59→20:53)
--- NOTE | 2018-03-20 11:11 | PDOC.PN ---
- Subjective Encounter Start Date: 03/20/18 Encounter Start Time: 08:15 Subjective: had breakfast and is sleepy, arouses easily -: no sob or chest pain - Objective MAR Reviewed: Yes Vital Signs & Weight: Vital Signs (12 hours) Temp Pulse Resp BP BP Pulse Ox 03/20/18 07:55 98.2 F 86 14 104/60 98 03/20/18 04:00 98.4 F 93 14 115/59 L 94 L Weight Weight 292 lb 8 oz Result Diagrams: 03/20/18 05:04 03/20/18 05:04 Phys Exam - Physical Examination HEENT: PERRLA, moist MMs Neck: no JVD, supple Respiratory: no wheezing, no rales Cardiovascular: RRR, no significant murmur Gastrointestinal: soft, non-tender, positive bowel sounds Musculoskeletal: no edema, pulses present Neurological: non-focal, moves all 4 limbs Psychiatric: normal affect, A&O x 3 Dx/Plan (1) CAD (coronary artery disease) Code(s): I25.10 - ATHSCL HEART DISEASE OF [place] CORONARY ARTERY W/O ANG PCTRS Status: Acute Qualifiers: Coronary Disease-Associated Artery/Lesion type: [place] artery [place] vs. transplanted heart: [place] heart Comment: s/p thrombectomy from mid RCA (2) Obesity Code(s): E66.9 - OBESITY, UNSPECIFIED Status: Chronic Qualifiers: Obesity classification: adult class 3 (BMI >= 40) Body mass index: BMI 40.0 -44.9 (3) Acute systolic CHF (congestive heart failure), NYHA class 4 Code(s): I50.21 - ACUTE SYSTOLIC (CONGESTIVE) HEART FAILURE Status: Acute Comment: ef of 10%, has life vest (4) Asthma Code(s): J45.909 - UNSPECIFIED ASTHMA, UNCOMPLICATED Status: Chronic Qualifiers: Asthma severity: unspecified severity Asthma persistence: intermittent Asthma complication type: unspecified Qualified Code(s): J45.20 - Mild intermittent asthma, uncomplicated (5) Cardiomyopathy Code(s): I42.9 - CARDIOMYOPATHY, UNSPECIFIED Status: Acute Qualifiers: Cardiomyopathy type: unspecified Qualified Code(s): I42.9 - Cardiomyopathy , unspecified (6) Mediastinal mass Status: Chronic (7) Grand mal seizure disorder Code(s): G40.409 - OTH GENERALIZED EPILEPSY, NOT INTRACTABLE, W/O STAT EPI Status: Chronic (8) Schizophrenia Code(s): F20.9 - SCHIZOPHRENIA, UNSPECIFIED Status: Chronic Qualifiers: Schizophrenia type: unspecified Qualified Code(s): F20.9 - Schizophrenia, unspecified - Plan inr 1.3, is on coumadin 7.5mg with lovenox 130mg q12h -: asp, coreg, lisinopril -: keppra -: to amb as tolerated -: dc plan when inr is around 2, needs coumadin clinic appt set up * . Review of Systems - Medications/Allergies Allergies/Adverse Reactions: Allergies Allergy/AdvReac Type Severity Reaction Status Date / Time ibuprofen Allergy Verified 03/06/18 14:46 NSAIDS (Non-Steroidal Allergy Verified 03/06/18 14:46 Anti-Inflamma peanut Allergy Verified 03/06/18 14:46 Medications: Current Medications Aspirin (Aspirin Chewable) 81 mg PO DAILY [facility] Last Admin: 03/20/18 07:58 Dose: 81 mg Atorvastatin Calcium (Lipitor) 20 mg PO [facility] Carvedilol (Coreg) 6.25 mg PO BID [facility] Enoxaparin Sodium (Lovenox) 100 mg SC 0900,2100 [facility] Last Admin: 03/20/18 07:58 Dose: 100 mg Enoxaparin Sodium (Lovenox) 30 mg SC 0900,2100 [facility] Last Admin: 03/20/18 07:59 Dose: 30 mg Escitalopram Oxalate (Lexapro) 20 mg PO BID [facility] Last Admin: 03/20/18 07:59 Dose: 20 mg Levetiracetam (Keppra) 1,000 mg PO BID [facility] Last Admin: 03/20/18 07:59 Dose: 1,000 mg Lisinopril (Zestril) 5 mg PO BID [facility] Last Admin: 03/20/18 07:59 Dose: 5 mg Nicotine (Nicoderm Patch) 21 mg TD Q24HR [facility] Last Admin: 03/19/18 14:36 Dose: 21 mg Nitroglycerin (Nitrostat) 0.4 mg PO Q5MIN PRN PRN Reason: Chest Pain Last Admin: 03/18/18 10:21 Dose: 0.4 mg Quetiapine Fumarate (Seroquel) 100 mg PO [facility] Last Admin: 03/19/18 20:07 Dose: 100 mg Sodium Chloride (Flush - Normal Saline) 10 ml IVF PRN PRN PRN Reason: Saline Flush Last Admin: 03/20/18 08:02 Dose: 10 ml Warfarin Sodium (Coumadin) 7.5 mg PO 1700 [facility] Last Admin: 03/19/18 15:51 Dose: 7.5 mg
[2018-03-20] MEDS: Nicotine 21 MG PATCH TD SCH (13:35)
[2018-03-20] MEDS: Warfarin Sodium 7.5 MG TAB PO SCH (16:31)
[2018-03-20] MEDS: Atorvastatin Calcium 20 MG TAB PO SCH (20:53)
[2018-03-20] MEDS: Carvedilol 6.25 MG TAB PO SCH (20:55)
[2018-03-21 05:32] LABS: INR-International Normal Ratio 1.4; Prothrombin Time 17.5 SEC (12.0-14.7)
[2018-03-21 05:52] LABS: Anion Gap 11 mmol/L (10-20); BUN (Urea Nitrogen) 12 mg/dL (7.0-18.7); Calc. Creatinine Clearance 201 mL/min (70-130); Calcium 9.4 mg/dL (7.8-10.44); Carbon Dioxide 25 mmol/L (22-29); Chloride 107 mmol/L (98-107); Estimated GFR-MDRD Greater than 90; Glucose 89 mg/dL (70-105); Potassium 4.2 mmol/L (3.5-5.1); Sodium 139 mmol/L (136-145)
[2018-03-21 06:04] VITALS: BMI 42.0
[2018-03-21] MEDS: levETIRAcetam 500 MG TAB PO SCH ×2 (08:35→21:13)
[2018-03-21] MEDS: Carvedilol 6.25 MG TAB PO SCH ×2 (08:35→21:16)
[2018-03-21] MEDS: Enoxaparin Sodium 100 MG/ML SYRINGE SC SCH ×2 (08:35→21:15)
[2018-03-21] MEDS: Escitalopram Oxalate 20 mg Tablet PO SCH ×2 (08:35→21:13)
[2018-03-21] MEDS: Enoxaparin Sodium 30 MG/0.3 ML SYRINGE SC SCH ×2 (08:36→21:12)
[2018-03-21] MEDS: Lisinopril 10 MG TAB PO SCH ×2 (09:18→21:13)
--- NOTE | 2018-03-21 11:46 | PDOC.PN ---
- Subjective Encounter Start Date: 03/21/18 Encounter Start Time: 10:25 Subjective: no sob or chest pain - Objective MAR Reviewed: Yes Vital Signs & Weight: Vital Signs (12 hours) Temp Pulse Pulse Pulse Resp BP BP 03/21/18 09:48 86 80 117/82 94/60 03/21/18 08:17 98.5 F 89 16 03/21/18 08:15 98.5 F 89 16 03/21/18 04:00 98.4 F 78 18 BP BP Pulse Ox Pulse Ox Pulse Ox 03/21/18 09:48 94 L 99 03/21/18 08:17 94 L 03/21/18 08:15 112/72 94 L 03/21/18 04:00 115/72 94 L Weight Weight 293 lb 8 oz I&O: 03/20/18 03/21/18 03/22/18 06:59 06:59 06:59 Intake Total 800 Balance 800 Result Diagrams: 03/20/18 05:04 03/21/18 05:16 Phys Exam - Physical Examination HEENT: PERRLA, moist MMs Neck: no JVD, supple Respiratory: no wheezing, no rales Cardiovascular: RRR, no significant murmur Gastrointestinal: soft, non-tender, positive bowel sounds Musculoskeletal: no edema, pulses present Neurological: non-focal, moves all 4 limbs Psychiatric: normal affect, A&O x 3 Dx/Plan (1) CAD (coronary artery disease) Code(s): I25.10 - ATHSCL HEART DISEASE OF [place] CORONARY ARTERY W/O ANG PCTRS Status: Acute Qualifiers: Coronary Disease-Associated Artery/Lesion type: [place] artery [place] vs. transplanted heart: [place] heart Comment: s/p thrombectomy from mid RCA (2) Obesity Code(s): E66.9 - OBESITY, UNSPECIFIED Status: Chronic Qualifiers: Obesity classification: adult class 3 (BMI >= 40) Body mass index: BMI 40.0 -44.9 (3) Acute systolic CHF (congestive heart failure), NYHA class 4 Code(s): I50.21 - ACUTE SYSTOLIC (CONGESTIVE) HEART FAILURE Status: Acute Comment: ef of 10%, has life vest (4) Asthma Code(s): J45.909 - UNSPECIFIED ASTHMA, UNCOMPLICATED Status: Chronic Qualifiers: Asthma severity: unspecified severity Asthma persistence: intermittent Asthma complication type: unspecified Qualified Code(s): J45.20 - Mild intermittent asthma, uncomplicated (5) Cardiomyopathy Code(s): I42.9 - CARDIOMYOPATHY, UNSPECIFIED Status: Acute Qualifiers: Cardiomyopathy type: unspecified Qualified Code(s): I42.9 - Cardiomyopathy , unspecified (6) Mediastinal mass Status: Chronic (7) Grand mal seizure disorder Code(s): G40.409 - OTH GENERALIZED EPILEPSY, NOT INTRACTABLE, W/O STAT EPI Status: Chronic (8) Schizophrenia Code(s): F20.9 - SCHIZOPHRENIA, UNSPECIFIED Status: Chronic Qualifiers: Schizophrenia type: unspecified Qualified Code(s): F20.9 - Schizophrenia, unspecified - Plan on vani 130mg sc q12h, increase coumadin to 10mg, inr is 1.4 -: asp, coreg, lisinopril and keppra -: is amb in hallway -: dc plan when inr is therapeutic per cardiology advice * . Review of Systems - Medications/Allergies Allergies/Adverse Reactions: Allergies Allergy/AdvReac Type Severity Reaction Status Date / Time ibuprofen Allergy Verified 03/06/18 14:46 NSAIDS (Non-Steroidal Allergy Verified 03/06/18 14:46 Anti-Inflamma peanut Allergy Verified 03/06/18 14:46 Medications: Current Medications Aspirin (Aspirin Chewable) 81 mg PO DAILY [facility] Last Admin: 03/21/18 08:34 Dose: 81 mg Atorvastatin Calcium (Lipitor) 20 mg PO HS [facility] Last Admin: 03/20/18 20:53 Dose: 20 mg Carvedilol (Coreg) 6.25 mg PO BID [facility] Last Admin: 03/21/18 08:35 Dose: 6.25 mg Enoxaparin Sodium (Lovenox) 100 mg SC 899,2099 [facility] Last Admin: 03/21/18 08:35 Dose: 100 mg Enoxaparin Sodium (Lovenox) 30 mg SC 00,2099 [facility] Last Admin: 03/21/18 08:36 Dose: 30 mg Escitalopram Oxalate (Lexapro) 20 mg PO BID [facility] Last Admin: 03/21/18 08:35 Dose: 20 mg Levetiracetam (Keppra) 1,000 mg PO BID [facility] Last Admin: 03/21/18 08:35 Dose: 1,000 mg Lisinopril (Zestril) 10 mg PO BID [facility] Last Admin: 03/21/18 09:18 Dose: 10 mg Nicotine (Nicoderm Patch) 21 mg TD Q24HR [facility] Last Admin: 03/20/18 13:35 Dose: 21 mg Nitroglycerin (Nitrostat) 0.4 mg PO Q5MIN PRN PRN Reason: Chest Pain Last Admin: 03/18/18 10:21 Dose: 0.4 mg Quetiapine Fumarate (Seroquel) 100 mg PO HS [facility] Last Admin: 03/20/18 20:54 Dose: 100 mg Sodium Chloride (Flush - Normal Saline) 10 ml IVF PRN PRN PRN Reason: Saline Flush Last Admin: 03/20/18 08:02 Dose: 10 ml Warfarin Sodium (Coumadin) 10 mg PO 1700 [facility]
--- NOTE | 2018-03-21 13:09 | EKG ---
Test Reason : Blood Pressure : / mmHG Vent. Rate : 099 BPM Atrial Rate : 099 BPM P-R Int : 180 ms QRS Dur : 102 ms QT Int : 364 ms P-R-T Axes : 042 021 145 degrees QTc Int : 467 ms Normal sinus rhythm Marked ST abnormality, possible lateral subendocardial injury Abnormal ECG No ST elevation High lateral ST inversion Lead aVR ST elevation Inferior lead III upsloping ST+ST elevation, possible reciprocal depression in aVl #1 Confirmed by KWABENA CHOPRA ([id number]), manager editorial LENIN ANDERSON ([id number]) on 03/21/2018 1:09:28 PM Referred By: ANGY Confirmed By:KWABENA CHOPRA
--- NOTE | 2018-03-21 13:15 | EKG ---
Test Reason : ELEVATED TROP Blood Pressure : / mmHG Vent. Rate : 090 BPM Atrial Rate : 090 BPM P-R Int : 172 ms QRS Dur : 096 ms QT Int : 406 ms P-R-T Axes : 033 012 -04 degrees QTc Int : 496 ms Normal sinus rhythm Minimal voltage criteria for LVH, may be normal variant Nonspecific T wave abnormality Prolonged QT Abnormal ECG Confirmed by KWABENA CHOPRA ([id number]), newspaper copy editor LENIN ANDERSON ([id number]) on 03/21/2018 1:14:51 PM Referred By: TABBY Confirmed By:KWABENA CHOPRA
[2018-03-21] MEDS: Nicotine 21 MG PATCH TD SCH (15:21)
[2018-03-21] MEDS: Warfarin Sodium 10 MG TAB PO SCH (16:46)
[2018-03-21] MEDS: Atorvastatin Calcium 20 MG TAB PO SCH (21:15)
[2018-03-22 05:15] LABS: INR-International Normal Ratio 1.8
[2018-03-22 05:35] LABS: Hemoglobin 10.2 g/dL (12.0-16.0); Platelet Count 326 thou/uL (130-400)
[2018-03-22 05:37] LABS: Anion Gap 12 mmol/L (10-20); BUN (Urea Nitrogen) 13 mg/dL (7.0-18.7); Calc. Creatinine Clearance 178 mL/min (70-130); Calcium 9.3 mg/dL (7.8-10.44); Carbon Dioxide 24 mmol/L (22-29); Chloride 107 mmol/L (98-107); Estimated GFR-MDRD 82; Glucose 95 mg/dL (70-105); Potassium 4.3 mmol/L (3.5-5.1); Sodium 139 mmol/L (136-145)
[2018-03-22] MEDS: levETIRAcetam 500 MG TAB PO SCH ×2 (08:35→20:57)
[2018-03-22] MEDS: Escitalopram Oxalate 20 mg Tablet PO SCH ×2 (08:35→20:57)
[2018-03-22] MEDS: Carvedilol 6.25 MG TAB PO SCH ×2 (08:35→20:59)
[2018-03-22] MEDS: Lisinopril 10 MG TAB PO SCH ×2 (08:35→20:59)
[2018-03-22] MEDS: Enoxaparin Sodium 100 MG/ML SYRINGE SC SCH ×2 (08:36→20:57)
[2018-03-22] MEDS: Enoxaparin Sodium 30 MG/0.3 ML SYRINGE SC SCH ×2 (08:36→20:57)
--- NOTE | 2018-03-22 12:33 | PDOC.PN ---
- Subjective Encounter Start Date: 03/22/18 Encounter Start Time: 10:30 Subjective: c/o some oozing at right femoral cath site -: no chest pain or sob or palp -: cousin at bedside - Objective MAR Reviewed: Yes Vital Signs & Weight: Vital Signs (12 hours) Temp Pulse Pulse Pulse Resp BP BP 03/22/18 09:38 101 H 86 119/78 111/76 03/22/18 07:45 98.2 F 80 18 03/22/18 07:39 98.2 F 80 18 03/22/18 04:00 98.3 F 80 18 BP BP Pulse Ox Pulse Ox Pulse Ox 03/22/18 09:38 98 100 03/22/18 07:45 95 03/22/18 07:39 94/57 L 95 03/22/18 04:00 100/62 94 L Weight Weight 293 lb 8 oz I&O: 03/21/18 03/22/18 03/23/18 06:59 06:59 06:59 Intake Total 800 1726 Balance 800 1726 Result Diagrams: 03/22/18 04:59 03/22/18 04:59 Phys Exam - Physical Examination HEENT: PERRLA, moist MMs Neck: no JVD, supple Respiratory: no wheezing, no rales Cardiovascular: RRR, no significant murmur Gastrointestinal: soft, non-tender, positive bowel sounds Musculoskeletal: no edema, pulses present right femoral cath site no bruit or swelling, small amount of oozing+ Neurological: non-focal, moves all 4 limbs Psychiatric: normal affect, A&O x 3 Dx/Plan (1) CAD (coronary artery disease) Code(s): I25.10 - ATHSCL HEART DISEASE OF [place] CORONARY ARTERY W/O ANG PCTRS Status: Acute Qualifiers: Coronary Disease-Associated Artery/Lesion type: [place] artery [place] vs. transplanted heart: [place] heart Comment: s/p thrombectomy from mid RCA (2) Obesity Code(s): E66.9 - OBESITY, UNSPECIFIED Status: Chronic Qualifiers: Obesity classification: adult class 3 (BMI >= 40) Body mass index: BMI 40.0 -44.9 (3) Acute systolic CHF (congestive heart failure), NYHA class 4 Code(s): I50.21 - ACUTE SYSTOLIC (CONGESTIVE) HEART FAILURE Status: Acute Comment: ef of 10%, has life vest (4) Asthma Code(s): J45.909 - UNSPECIFIED ASTHMA, UNCOMPLICATED Status: Chronic Qualifiers: Asthma severity: unspecified severity Asthma persistence: intermittent Asthma complication type: unspecified Qualified Code(s): J45.20 - Mild intermittent asthma, uncomplicated (5) Cardiomyopathy Code(s): I42.9 - CARDIOMYOPATHY, UNSPECIFIED Status: Acute Qualifiers: Cardiomyopathy type: unspecified Qualified Code(s): I42.9 - Cardiomyopathy , unspecified (6) Mediastinal mass Status: Chronic (7) Grand mal seizure disorder Code(s): G40.409 - OTH GENERALIZED EPILEPSY, NOT INTRACTABLE, W/O STAT EPI Status: Chronic (8) Schizophrenia Code(s): F20.9 - SCHIZOPHRENIA, UNSPECIFIED Status: Chronic Qualifiers: Schizophrenia type: unspecified Qualified Code(s): F20.9 - Schizophrenia, unspecified - Plan hemostable -: inr is 1.8 this am, is on coumadin 10mg and lovenox 130mg q12h -: will dc lovenox in am -: on asp, coreg, lisinopril and lipitor -: is amb in [facility], coumadin clinic to be set up in am * . Review of Systems - Medications/Allergies Allergies/Adverse Reactions: Allergies Allergy/AdvReac Type Severity Reaction Status Date / Time ibuprofen Allergy Verified 03/06/18 14:46 NSAIDS (Non-Steroidal Allergy Verified 03/06/18 14:46 Anti-Inflamma peanut Allergy Verified 03/06/18 14:46 Medications: Current Medications Aspirin (Aspirin Chewable) 81 mg PO DAILY [facility] Last Admin: 03/22/18 08:35 Dose: 81 mg Atorvastatin Calcium (Lipitor) 20 mg PO HS [facility] Last Admin: 03/21/18 21:15 Dose: 20 mg Carvedilol (Coreg) 6.25 mg PO BID [facility] Last Admin: 03/22/18 08:35 Dose: 6.25 mg Enoxaparin Sodium (Lovenox) 100 mg SC 0900,2099 [facility] Last Admin: 03/22/18 08:36 Dose: 100 mg Enoxaparin Sodium (Lovenox) 30 mg SC 0900,2100 [facility] Last Admin: 03/22/18 08:36 Dose: 30 mg Escitalopram Oxalate (Lexapro) 20 mg PO BID [facility] Last Admin: 03/22/18 08:35 Dose: 20 mg Levetiracetam (Keppra) 1,000 mg PO BID [facility] Last Admin: 03/22/18 08:35 Dose: 1,000 mg Lisinopril (Zestril) 10 mg PO BID [facility] Last Admin: 03/22/18 08:35 Dose: 10 mg Nicotine (Nicoderm Patch) 21 mg TD Q24HR [facility] Last Admin: 03/21/18 15:21 Dose: 21 mg Nitroglycerin (Nitrostat) 0.4 mg PO Q5MIN PRN PRN Reason: Chest Pain Last Admin: 03/18/18 10:21 Dose: 0.4 mg Quetiapine Fumarate (Seroquel) 100 mg PO HS [facility] Last Admin: 03/21/18 21:15 Dose: 100 mg Sodium Chloride (Flush - Normal Saline) 10 ml IVF PRN PRN PRN Reason: Saline Flush Last Admin: 03/20/18 08:02 Dose: 10 ml Warfarin Sodium (Coumadin) 10 mg PO 1700 [facility] Last Admin: 03/21/18 16:46 Dose: 10 mg
[2018-03-22] MEDS: Nicotine 21 MG PATCH TD SCH (13:10)
[2018-03-22] MEDS: Warfarin Sodium 10 MG TAB PO SCH (16:04)
[2018-03-22] MEDS: Atorvastatin Calcium 20 MG TAB PO SCH (20:57)
[2018-03-23 03:40] VITALS: TEMP 98.2
[2018-03-23 05:10] LABS: INR-International Normal Ratio 2.2; Prothrombin Time 24.3 SEC (12.0-14.7)
[2018-03-23 05:16] LABS: Anion Gap 15 mmol/L (10-20); BUN (Urea Nitrogen) 11 mg/dL (7.0-18.7); Calc. Creatinine Clearance 182 mL/min (70-130); Calcium 9.5 mg/dL (7.8-10.44); Carbon Dioxide 23 mmol/L (22-29); Chloride 106 mmol/L (98-107); Estimated GFR-MDRD 84; Glucose 84 mg/dL (70-105); Potassium 4.3 mmol/L (3.5-5.1); Sodium 140 mmol/L (136-145)
--- NOTE | 2018-03-23 06:49 | PDOC.CTH ---
Cardiology Progress Note - Subjective Recently presented with a NQWMI. Pt with recent angio in 02/2018 without CAD. thrombus montse noted in RCA from LV. - Objective Vital Signs Temp Pulse Resp BP BP BP Pulse Ox 03/23/18 03:35 98.2 F 89 17 107/67 98 03/22/18 21:06 98.9 F 91 16 115/68 97 03/22/18 20:59 98.9 F 91 16 117/69 92 L Weight 294 lb 8 oz 03/21/18 03/22/18 03/23/18 06:59 06:59 06:59 Intake Total 800 1726 1540 Balance 800 1726 1540 - Labs Result Diagrams: 03/22/18 04:59 03/23/18 04:49 Troponin/CKMB CK-MB (CK-2) 0.4 ng/mL (0-6.6) 03/17/18 00:08 Troponin I 21.881 ng/mL (< 0.028) H* 03/17/18 11:31 - Assessment/Plan 1. Recent CA 2. NICM 3. Schizophrenia INR now therapeutic On CV meds. Continue lifevest
[2018-03-23] MEDS: levETIRAcetam 500 MG TAB PO SCH (09:27)
[2018-03-23] MEDS: Lisinopril 10 MG TAB PO SCH (09:27)
[2018-03-23] MEDS: Carvedilol 6.25 MG TAB PO SCH (09:27)
[2018-03-23] MEDS: Escitalopram Oxalate 20 mg Tablet PO SCH (09:27)
[2018-03-23 10:27] VITALS: BP 117/74
--- NOTE | 2018-03-23 10:40 | PDOC.PN ---
- Subjective Encounter Start Date: 03/23/18 Encounter Start Time: 09:15 Subjective: awake, no chest pain or palp or sob - Objective MAR Reviewed: Yes Vital Signs & Weight: Vital Signs (12 hours) Temp Pulse Pulse Pulse Resp BP BP 03/23/18 09:40 91 85 117/74 120/73 03/23/18 08:55 98.2 F 86 16 03/23/18 03:35 98.2 F 89 17 BP Pulse Ox Pulse Ox Pulse Ox 03/23/18 09:40 100 99 03/23/18 08:55 120/73 100 03/23/18 03:35 107/67 98 Weight Weight 294 lb 8 oz I&O: 03/22/18 03/23/18 03/24/18 06:59 06:59 06:59 Intake Total 1726 1540 Balance 1726 1540 Result Diagrams: 03/22/18 04:59 03/23/18 04:49 Phys Exam - Physical Examination HEENT: PERRLA, moist MMs Neck: no JVD, supple Respiratory: no wheezing, no rales Cardiovascular: RRR, no significant murmur Gastrointestinal: soft, non-tender, positive bowel sounds Musculoskeletal: no edema, pulses present Neurological: non-focal, moves all 4 limbs Psychiatric: A&O x 3 Dx/Plan (1) CAD (coronary artery disease) Code(s): I25.10 - ATHSCL HEART DISEASE OF [place] CORONARY ARTERY W/O ANG PCTRS Status: Acute Qualifiers: Coronary Disease-Associated Artery/Lesion type: [place] artery [place] vs. transplanted heart: [place] heart Comment: s/p thrombectomy from mid RCA (2) Obesity Code(s): E66.9 - OBESITY, UNSPECIFIED Status: Chronic Qualifiers: Obesity classification: adult class 3 (BMI >= 40) Body mass index: BMI 40.0 -44.9 (3) Acute systolic CHF (congestive heart failure), NYHA class 4 Code(s): I50.21 - ACUTE SYSTOLIC (CONGESTIVE) HEART FAILURE Status: Acute Comment: ef of 10%, has life vest (4) Asthma Code(s): J45.909 - UNSPECIFIED ASTHMA, UNCOMPLICATED Status: Chronic Qualifiers: Asthma severity: unspecified severity Asthma persistence: intermittent Asthma complication type: unspecified Qualified Code(s): J45.20 - Mild intermittent asthma, uncomplicated (5) Cardiomyopathy Code(s): I42.9 - CARDIOMYOPATHY, UNSPECIFIED Status: Acute Qualifiers: Cardiomyopathy type: unspecified Qualified Code(s): I42.9 - Cardiomyopathy , unspecified (6) Mediastinal mass Status: Chronic (7) Grand mal seizure disorder Code(s): G40.409 - OTH GENERALIZED EPILEPSY, NOT INTRACTABLE, W/O STAT EPI Status: Chronic (8) Schizophrenia Code(s): F20.9 - SCHIZOPHRENIA, UNSPECIFIED Status: Chronic Qualifiers: Schizophrenia type: unspecified Qualified Code(s): F20.9 - Schizophrenia, unspecified - Plan nstemi stable, inr is therapeutic at 2.2 -: to check inr on friday -: has been cleared for dc today -: meds faxed to pharmacy * .
[2018-03-23] MEDS: Nicotine 21 MG PATCH TD SCH (13:24)
--- NOTE | 2018-03-23 22:41 | DIS ---
DATE OF ADMISSION: 03/17/2018 DATE OF DISCHARGE: 03/23/2018 DISCHARGE DISPOSITION: To home. PRIMARY DISCHARGE DIAGNOSES: Non-ST elevation myocardial infarction with thrombectomy done from mid RCA, cardiomyopathy with ejection fraction of around 10% on LifeVest. SECONDARY DISCHARGE DIAGNOSES: Obesity, schizoaffective disorder, grand mal seizure, chronic mediastinal mass. PROCEDURES DONE DURING HOSPITALIZATION: Patient had manual thrombectomy of thrombus done from RCA. Echo with 2D Doppler showed EF of 10% to 15%, moderate tricuspid regurgitation. There was no thrombus seen in cardiac chambers. CT angio chest done on the day of admission showed no pulmonary embolus was seen. H&H 11 and 35, platelet count 277 and troponin peaked up to 21.8. CK-MB of 0.4. BNP 194 on the day of admission. Discharge BUN and creatinine 11 and 0.9 , total cholesterol 139, triglycerides 108, LDL 82, HDL 35. INR on the day of discharge is 2.2 and Coumadin 10 mg daily. MIKALA screen was negative. DISCHARGE MEDICATIONS: Lisinopril 10 mg twice daily, Seroquel 100 mg p.o. at bedtime, Coumadin 10 mg p.o. q.p.m., Keppra 1000 mg p.o. twice daily, Coreg 6.25 mg twice daily, Lexapro 20 mg twice daily, atorvastatin 20 mg p.o. at bedtime, aspirin 81 mg p.o. daily, albuterol inhaler q.4 hourly p.r.n. ALLERGIES: NSAIDs and PEANUTS. INPATIENT CONSULTS: Dr. Escalante for cardiology. BRIEF COURSE DURING HOSPITALIZATION: Patient initially came to ER with complaints of chest pain. She had the first set of cardiac enzymes being indeterminate. Subsequent troponins were progressively increasing up to 21. She had consultation with Dr. Escalante who was covered button maker for Cardiology. Patient has had recent hospitalization and had cardiac catheterization done during her last admission in the month of February and had normal coronaries then. She was again taken to cardiac catheterization during this admission and was found to have had thrombus in the mid RCA area and had manual thrombectomy done. Post- thrombectomy, patient was placed on Lovenox and her INR has been titrated with Coumadin. Likely patient's low ejection fraction might have propagated thrombus to her coronaries. Her transthoracic echo has not revealed any thrombus in her cardiac chambers. The patient's INR is 2.2 this morning. She has remained hemodynamically stable all through her stay here. She is ambulating and eating well. Patient's INR needs to be checked on Friday in her primary care physician, Dr. Julian Da Silva's office. Case management was involved for setting up Coumadin Clinic at her PCP's office. She is otherwise hemodynamically stable and Dr. Langston covering for Dr. Escalante has cleared her for discharge. Please see a [id number] documentation on [facility] for the day of discharge. CHRISTINE
== END 2018-03-23 14:25 | disposition home or self-care (01) | DRG 250 ==
LOC: ERS 23:24 → ERHOLD 03-17 04:42 → 2NO 03-17 10:31
PROVIDERS: ADMIT Internal Medicine; ATTEND Internal Medicine
PROC: 02C03ZZ Extirpation of Matter from Coronary Artery, One Artery, Percutaneous Approach (ICD-10-PCS; principal; 2018-03-17)
PROC: 4A023N7 Measurement of Cardiac Sampling and Pressure, Left Heart, Percutaneous Approach (ICD-10-PCS; 2018-03-17)
PROC: B2111ZZ Fluoroscopy of Multiple Coronary Arteries using Low Osmolar Contrast (ICD-10-PCS; 2018-03-17)
PROC: B2151ZZ Fluoroscopy of Left Heart using Low Osmolar Contrast (ICD-10-PCS; 2018-03-17)
DX: I21.4 Non-ST elevation (NSTEMI) myocardial infarction (principal); I50.21 Acute systolic (congestive) heart failure; Z68.41 Body mass index [BMI] 40.0-44.9, adult; I42.9 Cardiomyopathy, unspecified; G40.409 Other generalized epilepsy and epileptic syndromes, not intractable, without status epilepticus; E66.01 Morbid (severe) obesity due to excess calories; F17.210 Nicotine dependence, cigarettes, uncomplicated; F25.9 Schizoaffective disorder, unspecified; J45.20 Mild intermittent asthma, uncomplicated; Z88.6 Allergy status to analgesic agent; Z91.010 Allergy to peanuts; Z79.899 Other long term (current) drug therapy
CPT/HCPCS: 36415; 71045; 71275; 80048; 80053; 80061; 80306; 80307; 81003; 81015; 82248; 82553; 83735; 83880; 84484; 85014; 85018; 85025; 85049; 85347; 85379; 85610; 86038; 86225; 92973; 92978; 93005; 93010; 93306; 93458; 93798; 94760; 96361; 96372; 96374; 96376; 99152; 99153; C1757; C1769; C1887; J1644; J1650; J2001; J2250; J2270; J3475; J7050; Q0162

== ENCOUNTER 2022-05-01 10:26 | Emergency (ER) | payer MEDICARE, MEDICAID | END 2022-05-01 11:24 | disposition left against medical advice (07) | LOC: ERS 10:26 | DX: R07.2 Precordial pain (principal); E78.5 Hyperlipidemia, unspecified; I50.9 Heart failure, unspecified; Z87.891 Personal history of nicotine dependence; Z95.811 Presence of heart assist device | CPT/HCPCS: 99284 ==

== ENCOUNTER 2022-09-29 09:27 | Emergency (ER) | payer MEDICARE, OTHER ==
[2022-09-29] MEDS ORDERED: levETIRAcetam 500 MG/5 ML VIAL ONE (10:00)
[2022-09-29 10:31] LABS: #Basophils 0.1 thou/uL (0.0-0.2); #Eosinphils 0.1 thou/uL (0.0-0.7); #Lymphocytes 2.1 thou/uL (1.20-3.40); #Monocytes 0.7 thou/uL (0.11-0.59); #Neutrophils 4.6 thou/uL (1.40-6.50); %Basophils 0.8 % (0.0-1.0); %Lymphocytes 27.9 % (21.0-51.0); %Monocytes 9.6 % (0.0-10.0); %Neutrophils 60.6 % (42.0-75.0); Hemoglobin 10.9 g/dL (12.0-16.0); Mean Corpuscular HGB CONC 31.9 g/dL (32.0-36.0); Mean Corpuscular Hemoglobin 30.2 pg (27.0-31.0); Mean Corpuscular Volume 94.7 fl (78.0-98.0); Mean Platelet Volume 7.5 fL (7.4-10.4); Platelet Count 262 10x3/uL (130-400); RBC Distribution Width 13.6 % (11.5-14.5); Red Blood Cell (RBC) Count 3.62 mill/uL (4.20-5.40); White Blood Cell (WBC) Count 7.6 10x3/uL (4.8-10.8)
[2022-09-29 10:39] LABS: ALT (SGPT) Less than 7 U/L (8-55); AST (SGOT) 10 U/L (5-34); Alkaline Phosphatase 81 U/L (40-110); Anion Gap 12 mmol/L (10-20); BUN (Urea Nitrogen) 11 mg/dL (7.0-18.7); Bilirubin, Total 0.7 mg/dL (0.2-1.2); Calc. Creatinine Clearance 0 mL/min (70-130); Calcium 9.4 mg/dL (7.8-10.44); Carbon Dioxide 26 mmol/L (22-29); Chloride 104 mmol/L (98-107); Estimated GFR 96; Globulin 3.7 g/dL (2.4-3.5); Glucose 65 mg/dL (70-105); Lipase Less than 4 U/L (8-78); Magnesium 2.1 mg/dL (1.6-2.6); Potassium 4.1 mmol/L (3.5-5.1); Protein, Total 7.7 g/dL (6.0-8.3); Sodium 138 mmol/L (136-145)
[2022-09-29 10:44] LABS: Bacteria/HPF None Seen HPF (None Seen); Bilirubin Negative (Negative); Blood, Urine Negative (Negative); Clarity Clear (Clear); Glucose, Urine (Dipstick) Normal (Negative); Ketone, Urine Negative (Negative); Leukocyte 25 Leu/uL (Negative); Nitrite Negative (Negative); Protein, Urine (Dipstick) 10 mg/dL (Neg-Trace); RBC/HPF 0-3 HPF (0-3); Specific Gravity, Urine 1.021 (1.002-1.036); Urobilinogen 3 mg/dL (Less than 2); WBC/HPF 0-3 HPF (0-3); pH, Urine 6.5 (5.0-9.0)
[2022-09-29] MEDS ORDERED: Acetaminophen 500 MG TAB ONE (12:13)
== END 2022-09-29 12:21 | disposition home or self-care (01) ==
LOC: ERS 09:27
DX: R56.9 Unspecified convulsions (principal); E78.5 Hyperlipidemia, unspecified; I50.9 Heart failure, unspecified; Z87.891 Personal history of nicotine dependence; Z79.899 Other long term (current) drug therapy
CPT/HCPCS: 80053; 83690; 83735; 83880; 85025; 93005; J1953; 36415; 81003; 81015; 96365

== ENCOUNTER 2022-11-03 18:27 | Emergency (ER) | payer MEDICARE, OTHER ==
[2022-11-03 18:48] LABS: #Basophils 0.1 thou/uL (0.0-0.2); #Eosinphils 0.2 thou/uL (0.0-0.7); #Lymphocytes 4.3 thou/uL (1.20-3.40); #Monocytes 0.7 thou/uL (0.11-0.59); #Neutrophils 3.4 thou/uL (1.40-6.50); %Basophils 1.1 % (0.0-1.0); %Eosinophils 1.8 % (0.0-10.0); %Lymphocytes 49.9 % (21.0-51.0); %Monocytes 7.8 % (0.0-10.0); %Neutrophils 39.4 % (42.0-75.0); Hemoglobin 10.8 g/dL (12.0-16.0); Mean Corpuscular HGB CONC 32.3 g/dL (32.0-36.0); Mean Corpuscular Hemoglobin 30.2 pg (27.0-31.0); Mean Corpuscular Volume 93.4 fl (78.0-98.0); Mean Platelet Volume 7.7 fL (7.4-10.4); Platelet Count 212 10x3/uL (130-400); RBC Distribution Width 13.4 % (11.5-14.5); Red Blood Cell (RBC) Count 3.57 mill/uL (4.20-5.40); White Blood Cell (WBC) Count 8.7 10x3/uL (4.8-10.8)
[2022-11-03 19:11] LABS: ALT (SGPT) 11 U/L (8-55); AST (SGOT) 16 U/L (5-34); Alkaline Phosphatase 91 U/L (40-110); Anion Gap 13 mmol/L (10-20); BUN (Urea Nitrogen) 13 mg/dL (7.0-18.7); Bilirubin, Total 0.7 mg/dL (0.2-1.2); Calc. Creatinine Clearance 0 mL/min (70-130); Calcium 9.3 mg/dL (7.8-10.44); Carbon Dioxide 26 mmol/L (22-29); Chloride 105 mmol/L (98-107); Estimated GFR 94; Globulin 3.8 g/dL (2.4-3.5); Glucose 59 mg/dL (70-105); Potassium 3.7 mmol/L (3.5-5.1); Protein, Total 7.8 g/dL (6.0-8.3); Sodium 140 mmol/L (136-145)
== END 2022-11-03 19:48 | disposition home or self-care (01) ==
LOC: ERS 18:27
DX: R56.9 Unspecified convulsions (principal); I50.9 Heart failure, unspecified; E78.00 Pure hypercholesterolemia, unspecified; I42.9 Cardiomyopathy, unspecified; Z87.891 Personal history of nicotine dependence; Z79.899 Other long term (current) drug therapy
CPT/HCPCS: 80053; 80177; 84146; 85025; 99284

== ENCOUNTER 2024-06-03 19:19 | Emergency (ER) | payer OTHER ==
[2024-06-03 19:50] LABS: #Basophils 0.05 10x3/uL (0.0-0.2); %Basophils 0.8 % (0.0-1.0); %Eosinophils 1.9 % (0.0-10.0); %Lymphocytes 41.3 % (21.0-51.0); %Monocytes 10.9 % (0.0-10.0); %Neutrophils 44.8 % (42.0-75.0); Hemoglobin 7.9 g/dL (12.0-16.0); Mean Corpuscular HGB CONC 30.4 g/dL (32.0-36.0); Mean Corpuscular Hemoglobin 26.6 pg (27.0-31.0); Mean Corpuscular Volume 87.5 fL (78.0-98.0); Mean Platelet Volume 10.1 fL (7.4-10.4); Platelet Count 155 10x3/uL (130-400); RBC Distribution Width 19.7 % (11.5-14.5); Red Blood Cell (RBC) Count 2.97 mill/uL (4.20-5.40)
[2024-06-03 20:02] LABS: INR-International Normal Ratio 2.1; Prothrombin Time 23.8 sec (12.0-14.7)
[2024-06-03 20:03] LABS: PTT 37.3 sec (22.9-36.1)
[2024-06-03 20:08] LABS: BHCG - Serum Negative (NEGATIVE); Pregs Control Background? CLEAR/WHITE (CLR/WHITE); Pregs Control Bar Appear? YES (CONTROL BAR)
[2024-06-03 20:11] LABS: Burr Cells SLIGHT = 2-5 cells HPF (0-1); Elliptocytes SLIGHT = 2-5 cells HPF (0-1); Eosinophils 4 % (0-10); Hypochromia SLIGHT = 6-15 cells HPF (0-5); Large Platelets 13.9 % (0-5); Lymphocytes 43 % (21-51); Monocytes 6 % (0-10); Neutrophil 47 % (42-75); Plasma Cells 1 % (0-0); Platelet Adequacy Comment Platelets Normal; Polychromasia MODERATE = 3-4 cells HPF (0-2); Smudge Cells 10.9 %
[2024-06-03 20:12] LABS: ALT (SGPT) 19 U/L (8-55); AST (SGOT) 25 U/L (5-34); Albumin 3.3 g/dL (3.5-5.0); Alkaline Phosphatase 68 U/L (40-110); Anion Gap 11 mmol/L (10-20); BUN (Urea Nitrogen) 13 mg/dL (7.0-18.7); Bilirubin, Total 0.6 mg/dL (0.2-1.2); Calc. Creatinine Clearance 0 mL/min (70-130); Calcium 8.9 mg/dL (7.8-10.44); Carbon Dioxide 20 mmol/L (22-29); Chloride 112 mmol/L (98-107); Estimated GFR 92; Globulin 3.3 g/dL (2.4-3.5); Glucose 65 mg/dL (70-105); Potassium 3.8 mmol/L (3.5-5.1); Protein, Total 6.6 g/dL (6.0-8.3); Sodium 139 mmol/L (136-145)
[2024-06-03] MEDS ORDERED: fentaNYL 50 mcg/mL 1 mL Vial ONE (20:13)
[2024-06-03 20:18] LABS: Troponin I Less than 0.010 ng/mL (< 0.028)
== END 2024-06-03 21:54 | disposition home or self-care (01) ==
LOC: ERS 19:19
DX: R07.9 Chest pain, unspecified (principal); R51.9 Headache, unspecified; I50.9 Heart failure, unspecified; E78.5 Hyperlipidemia, unspecified; J45.909 Unspecified asthma, uncomplicated; Z95.811 Presence of heart assist device; Z87.891 Personal history of nicotine dependence; Z79.01 Long term (current) use of anticoagulants
CPT/HCPCS: 70450; 71045; 71275; 80053; 83880; 84484; 84703; 85025; 85610; 85730; 93005; J3010; 36415; 96374